=== PATIENT | female | born 2005 | race Caucasian/White ===

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

== ENCOUNTER 2025-01-25 14:53 | Emergency (ER) | payer OTHER, SELFPAY ==
--- OUTSIDE RECORDS SUMMARY | 2025-01-20 23:50 | XMS_ITS | Encounter Summary ---
Author Organization [facility] Address [address] [place] [address] Phone Care Team Providers Care Patient Service Technician Pst Name Role Phone Yunier Lama MD Primary Care Provider [phone] Reason for Visit * Reason Comments Chest Pain Shortness of Breath Encounter Details Date Type Department Care Team ([facility] st Contact Info) Description 01/20/2025 11:50 PM EDT - 01/21/2025 1:16 AM EDT Emergency [facility] [address] [place] [address] Hugo Smyth, DO [address] [place] [address] [email or web address] Discharge Disposition: Home or Self Care Social History Tobacco Use Types Packs/Day Years Used Date Smoking Tobacco: Never Smokeless Tobacco: Never Alcohol Use Standard Drinks/Week Comments Never 0 (1 standard drink = 0.6 oz pur e alcohol) Education Answer Date Recorded Are you interested in more education? Not on tawnya e 08/17/2022 Are you concerned about learning? Not on file 08/17/2022 No 08/17/2022 No 08/17/2022 Food Answer Date Recorded Within the past 6 months we worried whether our food would run out before we got money to buy more. Never True 09/11/2024 Within the past 6 months the food we bought just didn't last and we didn't have enough money to get more. Never True Residential Stability Answer Date Recor ded What is your housing situation today? I have edwina sing 09/11/2024 How many times have you move d in the past 12 months? Zero (I did not move) 09/11/2024 Paying for Meds Answer Date Recorded Do you have trouble paying for medicines? No 09/11/2024 Paying Utility Bills Answer Date Record ed Do you have trouble paying your heating or elect ricity bill? No 09/11/2024 Transportation Answer Date Recorded Has the lack of transportati on kept you from medical appointments or from getting medications? No 09/11/2024 Digital Access Answer Date Recorded No 09/11/2024 Yes 09/11/2024 Do you have reliable internet access at home? Ye s 09/11/2024 Do you have a device (e.g., phone, tablet, computer) with a working camera? Yes 09/11/2024 Intimate Partner Violence Answer Date R ecorded Are you denied basic needs s uch as food, clothing, or medical care? No 01/20/2025 In the past 12 months have y ou been in a relationship with a person who hurts, threatens, or tries to control you? No 01/20/2025 Are you denied basic needs s uch as food, clothing, or medical care? No 01/20/2025 In the past 12 months have y ou been in a relationship with a person who hurts, threatens, or tries to control you? No 01/20/2025 Comments No Sex and Gender Information Value Date Recorded Sex Assigned at Female 09/14/2017 1:05 PM EDT Legal Sex Female 8:43 PM EDT Gender Identity Female 09/14/2017 1:05 PM EDT Sexual Orientation Don't know 09/11/2024 4: 50 AM EDT documented as of this encounter Last Filed Vital Signs Vital Sign Reading Time Taken Comments Blood Pressure 107/66 01/21/2025 1:14 AM EDT Pulse 64 01/21/2025 1:14 AM EDT Temperature 36 C (96.8 F) 01/21/2025 1:14 AM EDT Respiratory Rate 16 01/21/2025 1:14 AM EDT Oxygen Saturation 100% 01/21/2025 1:14 AM EDT Inhaled Oxygen Concentration - - Weight 63.5 kg (140 lb) 01/20/2025 11:28 PM EDT Height 167.6 cm (5' 6 ) 01/20/2025 11:28 PM EDT Body Mass Index 22.6 01/20/2025 11:28 PM EDT documented in this encounter Functional Status * Calculated C-SSRS Risk Score (Lifetime/Recent) Answer Date of Assessment Author No Risk Indicated 01/20/2025 11:30 PM EDT Mary Jo Kim RN * [place] Suicide Severity Rating Scale (Screener/Recent Self-Report) Question Answer Date of Assessment Author 1. Wish to be (Past 1 Month) No 025 11:30 PM EDT Mary Jo Kim RN 2. Non-Specific Active Suici dilcia Thoughts (Past 1 Month) No 01/20/2025 11:30 PM EDT Mary Jo Kim RN 6. Suicidal Behavior (Lifetime) No 11:30 PM EDT Mary Jo Kim RN documented as of this encounter Discharge Instructions * Discharge Instructions* Hugo Smyth DO - 01/21/2025 1:09 AM EDT As we discussed overall your workup is reassuring. I believe it is safe for you to go home. Moving forward I would alternate Tylenol with ibuprofen for your pain. I also recommend using lidocaine patches available [id number]. Follow-up with your technician semiconductor development tomorrow as previously arranged. Return for any further concerning symptoms. * Attachments The following attachments cannot be sent through Care Everywhere. * Chest Pain (Slovak) documented in this encounter Medications at Time of Discharge FLUoxetine (PROZAC) 20 MG capsule Take 20 mg by mouth daily. 06/17/2023 hydrOXYzine (ATARAX) 25 MG tablet Take 25 mg by mouth 2 (two) times a day as needed for anxiety. 12/17/2022 documented as of this encounter ED Notes * Venus Conner RN - 01/21/2025 1:15 AM EDT ED Discharge Nursing Note Patient is alert and oriented, pwd, VSS. Discharge instructions, medication management, and follow-up reviewed. Patient verbalizes understanding and denies questions at this time. Patient discharged in stable condition and offering no complaints at this time. Ambulatory at time of discharge. * Mary Jo Kim RN - 01/20/2025 11:27 PM EDT Pt reports chest pain 12/30 tot he center of her chest that is sharp and SOB that started about 2 hrs ago. Pt reports being seen at the ED 2 days ago for the same symptoms. Pt able to speak in full sentences. * Hugo Smyth DO - 01/20/2025 11:17 PM EDT Chief Complaint Chief Complaint Patient presents with Chest Pain Shortness of Breath History of Present Illness The patient, Santos Eid,is a 19 y.o. female who presents for evaluation of Chest Pain and Shortnessof Breath 19-year-old female presents for evaluation of chest pain and shortness of breath. Patient states that she has had pain in the anterior chest. Associated pain in the posterior thoracic spine. Worse when he takes breath. Reports also worse when she moves her torso. Tried ibuprofen but not really helping. Pain is intermittent. States they were seen and evaluated here 2 days ago and after labs and x-ray sent home with possible anxiety diagnosis. Has a follow-up with her technician semiconductor development tomorrow however given persistent pain came back to the ED today. They are accompanied by their mom. No exogenous estrogen use Unless otherwise specified, I have reviewed and agree with the triage and nursing notes. ROS A ten point review of systems was negative except what was noted in the HPI. Review of Systems Past Medical History Past Medical History: Diagnosis Date Seasonal allergies Past Surgical History No past surgical history on file. Home Medications Prior to Admission medications Medication Sig FLUoxetine (PROZAC) 20 MG capsule 20 mg, Daily Patient not taking: Reported on 01/18/2025 hydrOXYzine (ATARAX) 25 MG tablet 25 mg, 2 times daily PRN Allergies No Known Allergies Social and Family History Social History Tobacco Use Smoking status: Never Smokeless tobacco: Never Substance Use Topics Alcohol use: Never Social History Substance and Sexual Activity Drug Use Never No family history on file. Physical Exam Vital Signs: ED Triage Vitals [01/20/25 2328] Encounter Vitals Group BP 102/59 Systolic BP Percentile Diastolic BP Percentile Heart Rate 78 Respiratory Rate 18 Temperature 36 ??C (96.8 ??F) Temp Source Tympanic SpO2 97 % Weight 140 lb Height 5' 6 Head Circumference Peak Flow Pain Score Pain Loc Pain Education Exclude from Growth Chart Physical Exam General: Well Nourished, Well Developed HENT: Normocephalic, Atraumatic Eyes: Pupils equal, EOM Intact Cardiovascular: Normal Rate, Normal Rhythm, Good Distal Perfusion, no lower extremity swelling Pulmonary: Normal Effort, symmetric chest rise, there is tenderness of the anterior chest wall. Abdominal: Soft, Non-tender, Non-distended MSK: Normal ROM Skin: Intact, Dry Neurological: Alert, Orientated x 3 Psych: Normal Mood and Affect Laboratory Testing No results found for this visit on 01/20/25. Radiology Testing No orders to display ED Medication from 01/20/2025 2317 to 01/21/2025108 Date/Time Order Dose Route Action Action by Comments 01/21/202529 EDT acetaminophen (TYLENOL) tablet 975 mg 975 mg Oral Given Venus Conner RN -- 01/21/202530 EDT ketorolac (TORADOL) injection 30 mg 30 mg Intramuscular Given Venus Conner RN -- 01/21/202530 EDT lidocaine 4 % 1 patch 1 patch Transdermal Patch Applied Venus Conner RN -- [facility] Patient presents for evaluation of symptoms described above. On arrival vital signs are stable. EKGdemonstrates sinus rhythm no acute ST elevations or ST depressions. Normal axis and intervals. At this time most likely diagnosis is that of musculoskeletal etiology given reproducible nature of the pain. Patient was here the other day underwent x-ray imaging and labs including serial troponins andD-dimer all of which were negative. At this time low concern for acute life threat pathology do notfeel that labs or imaging need to be repeated. Will provide symptomatic care and reassess. Clinical Impressions as of 01/21/25 010 Chest pain, unspecified type Clinical Impression Diagnosis Description Comment Final diagnosis Chest pain, unspecified type Chest pain, unspecified type -- Disposition: Home Hugo Smyth, DO 01/21/25 0109 documented in this encounter Plan of Treatment Not on file documented as of this encounter Procedures Procedure Name Priority Date/Time Associated Diagnosis Comments ECG 12-LEAD STAT 01/21/2025 12:10 AM EDT documented in this encounter Results * ECG 12-LEAD (01/21/2025 12:10 AM EDT) Ventricular Rate EKG/MIN 70 BPM [facility] Atrial Rate 70 BPM [facility] SC Interval 128 ms [facility] QRS Duration 74 ms [facility] QT Interval 382 ms [facility] QTC Interval 412 ms [facility] P [place] 48 degrees [facility] R Wave [place] 53 degrees [facility] T Wave [place] 19 degrees [facility] 01/21/2025 12:1 0 AM EDT 01/21/2025 7:43 AM EDT Narrative [facility] - 01/21/2025 7:43 AM EDT Normal sinus rhythm Otherwise normal ECG When compared with ECG of 18-Jan-2025 15:11, Compared to the previous ekg, no significant change. Confirmed by Hong Elizalde ([id number]) on 01/21/2025 7:43:13 AM us Win Whitney MD ECG ORDERABLES Final Resul t [facility] documented in this encounter Visit Diagnoses Diagnosis Chest pain, unspecified type- Primary documented in this encounter Administered Medications Inactive Administered Medications - up to 3 most recent administrations Medication Order MAR Action Action Date Dose Rate Site acetaminophen (TYLENOL) tablet 975 mg 975 mg, Oral, Once, On Kayla 01/21/25 at 0015, For 1 dose Given 01/21/2025 12:30 AM EDT 975 mg ketorolac (TORADOL) injection 30 mg 30 mg, Intramuscular, Once, On Kayla 01/21/25 at 0015, For 1 dose Given 01/21/2025 12:31 AM EDT 30 mg Right Deltoid lidocaine 4 % 1 patch 1 patch, Transdermal, Administer over 12 Hours, Every 24 hours, First dose on Kayla 10/2/25 at 0015, Apply to anterior chest wall Do not place external heat sources such as heating pads over patches. Patch Applied 01/21/2025 12:31 AM EDT 1 patch Back documented in this encounter Active and Recently Administered Medications Times are shown in EDT. Scheduled Medication Order 01/19/2025 01/20/2025 01/21/2025 acetaminophen (TYLENOL) tablet 975 mg (COMPLETED) 975 mg, Oral, Once, On Kayla 01/21/25 at 0015, For 1 dose 0030 (Given - Provid er: Venus Conner RN) ketorolac (TORADOL) injection 30 mg (COMPLETED) 30 mg, Intramuscular, Once, On Kayla 01/21/25 at 0015, For 1 dose 0031 (Given - Provid er: Venus Conner RN) lidocaine 4 % 1 patch 1 patch, Transdermal, Administer over 12 Hours, Every 24 hours, First dose on Kayla 01/21/25 at 0015, Apply to anterior chest wall Do not place external heat sources such as heating pads over patches. 0031 (Patch Applied - Provider: Venus Conner RN)0116 (Due: Patch Removed - Provider: Automatic Discharge Provider - Comment: Time automatically adjusted from order being discontinued) documented in this encounter Care Teams Patient Service Technician Pst Relationship Specialty Start Date End Date Yunier Lama MD [address] [place] [address], [facility] [address] [place] [address] [email or web address] PCP - General Pediatrics 11/08/22 documented as of this encounter Additional Source Comments The information contained in this document represents components of the legal health record. It is not the complete legal health record.[facility]
--- OUTSIDE RECORDS SUMMARY | 2025-01-21 15:50 | XMS_ITS | Encounter Summary ---
Author Organization [facility] Address [address] [place] [address] Phone Care Team Providers Care Channel Rougher Name Role Phone Yunier Lama MD Primary Care Provider [phone] Reason for Visit * Reason Comments Med Management Encounter Details Date Type Department Care Team (Latest Contact Info) Description 01/21/2025 3:50 PM EDT Office Visit [facility] - [address], [address] [place] [address] Yunier Lama MD [address] [place] [address] Costochondritis (Primary Dx); Nasal congestion; Urinary frequency; Anxiety Social History Tobacco Use Types Packs/Day Years Used Date Smoking Tobacco: Never Smokeless Tobacco: Never Alcohol Use Standard Drinks/Week Comments Never 0 (1 standard drink = 0.6 oz pur e alcohol) Hunger/Food Answer Date Recorded In the last 12 months, did y ou or your family ever eat less than you felt you should because there wasn't enough money for food? No 08/17/2024 Stable Housing Answer Date Recorded Are you worried that in the next 2 months you may not have stable housing? No 08/17/2024 Transportation Concerns Answer Date Rec orded In the last 12 months, have you or your family ever had to go without healthcare because you didn't have a way to get there? No 08/17/2024 Hazards in Home Answer Date Recorded Think about the place you li ve. Do you have problems with any of the following? Pests (mice or roaches), mold, no/not working smoke detectors, water leaks, no window guards. No 2024 Financing Utilities Answer Date Recorde d In the last 12 months, has t he electric, gas, oil, or water company threatened to shut off your services in your home? No 08/17/2024 Safety at Home Answer Date Recorded Are you or your family worried about feeling saf e in your home? No 08/17/2024 Outside Support Answer Date Recorded Do you feel that you need mo re support from other people or programs to help you care for yourself or your family? No 08/17/2024 Understanding Health Concerns Answer Da te Recorded Do you need help understandi ng your or your child's healthcare needs (diagnosis, medications, plan, etc.)? No 08/17/2024 Financing Health Concerns Answer Date R ecorded In the last 12 months, was t here a time when your child needed to see a doctor or get medications or supplies but could not because of cost? No 08/17/2024 Missing School or Work Answer Date Musa rded Did you or your child miss s chool or work because of a health problem that could have been avoided? No 08/17/2024 Child Education Answer Date Recorded Do you have concerns about y our/your child's learning or behavior in school, preschool, or daycare? No 08/17/2024 Comments No Sex and Gender Information Value Date Recorded Sex Assigned at Female 03/27/2024 3:46 PM EST Legal Sex Female 5:10 PM EST Gender Identity Female 05/14/2022 3:20 PM EST Sexual Orientation Choose not to answer 04/08/20 24 2:38 PM EST documented as of this encounter Last Filed Vital Signs Vital Sign Reading Time Taken Comments Blood Pressure 109/72 01/21/2025 3:55 PM EDT Pulse 80 01/21/2025 3:55 PM EDT Temperature 37.3 C (99.1 F) 01/21/2025 3:55 PM EDT Respiratory Rate - - Oxygen Saturation 99% 01/21/2025 3:55 PM EDT Inhaled Oxygen Concentration - - Weight 70 kg (154 lb 6.4 oz) 01/21/2025 3:55 PM EDT Height - - Body Mass Index 24.55 08/17/2024 3:02 PM EDT documented in this encounter Progress Notes * Yunier Lama MD - 01/21/2025 3:50 PM EDT Chief Complaint Med Management Accompanied by No one. History of Present Illness Santos has been off hydroxyzine since 01/16. Meredith hydroxyzine made her mom anxious. Since stopping medication she has had SOB and chest pain that radiates to her back. Nausea in the morning as well. Screenings General Anxiety Disorder-7 (GAD7) DEWAYNE 7 Score: 17 Patient Health Questionnaire-9 (PHQ-9) PHQ-9 Total Score: 5 (See screening activity for details) Reviewed this visit: Medications Allergies Menstrual History Vitals BP 109/72 (BP Location: Right arm, Patient Position: Sitting) Pulse 80 Temp 99.1 ??F (37.3 ??C)(Temporal) Wt 154 lb 6.4 oz (70 kg) LMP 12/17/2024 (Exact Date) SpO2 99% BMI 24.55 kg/m?? Labs Today Results for orders placed or performed in visit on 01/21/25 POCT Urinalysis Dipstick Result Value Ref Range Color, Urine, POC Light Yellow Colorless or Yellow Clarity, Urine, POC Clear Clear or Slightly Cloudy Glucose, Urine, POC Negative Negative Bilirubin, Urine, POC Negative Negative Ketones, Urine, POC Small (A) Negative Specific [place], Urine, POC 1.005 1.003 - 1.030 Blood, Urine, POC Negative Negative pH, Urine, POC 6.0 4.6 - 8.0 Protein, Urine, POC Negative Negative Urobilinogen, Urine, POC 0.2 <=1, Normal mg/dL Nitrite, Urine, POC Negative Negative Leukocytes, Urine, POC Negative Negative Assessment and Plan Santos was seen today for med management. Costochondritis (Primary) Assessment & Plan: he patient's symptoms suggest costochondritis, a common cause of pain due to inflammation along thesternum cartilage. The exact etiology is unknown, but it can be managed with ibuprofen and ice application to the affected areas. Her anxiety may be exacerbating her pain. Reassured her that her heart and lungs are functioning well. Advised to continue with ibuprofen and ice application. Tylenol was recommended as an alternative for pain management. Nasal congestion - cetirizine (ZyrTEC Allergy) 10 MG tablet; Take 1 tablet (10 mg total) by mouth nightly as needed for allergies., Starting Kayla 01/21/2025, Until 03/22/2025 at 2359, Normal Urinary frequency - POCT Urinalysis Dipstick - Urine culture Anxiety Assessment & Plan: Her anxiety appears to be worsening, which could be intensifying her chest pain. She has an upcoming appointment with a therapist at [facility] on 01/26/2025. Lexapro was prescribed, starting with half a pill daily for one week, then increasing to a full pill daily. Potential side effects, including increased irritability and suicidal thoughts, were discussed. Advised to consult her therapist for relaxat ion techniques and breathing exercises to manage her anxiety. DEWAYNE 7 score is significantly elevated PHQ 9 mild elevation This medication is not addictive. We will use the lowest effective dose by starting low and increasing slowly. The FDA has found a very small risk of suicidal thoughts for this type of medication when used for treating anxiety, but the benefits of the medication are believed to strongly outweigh the risks if we monitor closely. Other side effects seen most commonly are nausea, diarrhea, headache and trouble sleeping are mild ad go away after a few days. If any concerning things arise while tkaing this medication, be sure to call the office and we'll decide what to do. Orders: - escitalopram (Lexapro) 10 MG tablet; 0.5 tab qd for 1 week then increase to 1 tab qd, Normal * Yunier Lama MD - 01/21/2025 3:50 PM EDT CRISTY Progress Note Santos is a 19yr woman who comes in today for Med Management History of Present Illness The patient is here for a follow-up on depression and anxiety. She reports experiencing sharp chest pains that radiate to her back, which began a few days ago. Despite the absence of any alarming findings from her recent EKG, x-ray, and blood work, she continuesto experience mild chest pain. She also mentions occasional chills and morning nausea. Her last menstrual period was on 12/21/2024, and she has not had one since. A test was conducted, which came back negative. She has been sexually inactive for several months. During her last ER visit, she was given a lidocaine patch for her back pain, which provided temporary relief. However, the painreturned after an hour or two. The pain is located in her upper back and radiates around both sides. She has been applying ice to the painful areas, but this has not provided significant relief. 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 She suspects that lifting heavy bags at work may have contributed to her pain, although she tries to avoid heavy lifting andseeks help from coworkers when necessary. She discontinued hydroxyzine due to perceived exacerbation of her anxiety symptoms, including increased panic attacks. She is not currently on any anti- anxiety medication, having stopped fluoxetine over a year ago. She has not consulted a psychiatrist in over a year and does not have a therapist. She has an upcoming appointment for outpatient therapy at [facility] on 01/26/2025. She expresses more concern about her shortness of breath than her anxiety. She feels the need to yawn to get enough oxygen and is seeking medication for this symptom. She has previously taken sertraline and fluoxetine, as well as another medication during inpatient care a few years ago, but none of these have been effective. She has noticed an increase in mucus production in her throat and a sensation of dryness. She reports increased urinary frequency but does not experience any pain during urination. Reviewed this visit: Medications Allergies Menstrual History Screenings General Anxiety Disorder-7 (GAD7) DEWAYNE 7 Score: 17 Patient Health Questionnaire-9 (PHQ-9) PHQ-9 Total Score: 5 (See screening activity for details) Vitals BP 109/72 (BP Location: Right arm, Patient Position: Sitting) Pulse 80 Temp 99.1 ??F (37.3 ??C)(Temporal) Wt 154 lb 6.4 oz (70 kg) LMP 12/17/2024 (Exact Date) SpO2 99% BMI 24.55 kg/m?? Physical Exam GEN: Well appearing, in no acute distress HEAD: Normocephalic, atraumatic. EYES: Conjunctiva clear, no discharge, eyelids wnl. EARS: TMs wnl bilaterally. NOSE: No rhinorrhea, no nasal congestion. ORAL: Moist mucous membranes. No lesion, no erythema, exudate or petechiae. NECK: Supple, no significant adenopathy. COR: RRR, nml S1 and S2, no rubs, murmurs, or gallops. PULM: Clear to auscultation bilaterally. Normal respiratory effort. EXT: Warm, well perfused. MUSC: No gross deformity. Gait/movement wnl for age. NEURO: Mental status wnl for age, no gross deficits. Physical Exam Vital Signs: Oxygen levels are normal. Respiratory: Lungs are clear. Cardiovascular: Heart is normal. Musculoskeletal: Tenderness noted at the costosternal margin bilaterally. Labs Today Results for orders placed or performed in visit on 01/21/25 POCT Urinalysis Dipstick Result Value Ref Range Color, Urine, POC Light Yellow Colorless or Yellow Clarity, Urine, POC Clear Clear or Slightly Cloudy Glucose, Urine, POC Negative Negative Bilirubin, Urine, POC Negative Negative Ketones, Urine, POC Small (A) Negative Specific [place], Urine, POC 1.005 1.003 - 1.030 Blood, Urine, POC Negative Negative pH, Urine, POC 6.0 4.6 - 8.0 Protein, Urine, POC Negative Negative Urobilinogen, Urine, POC 0.2 <=1, Normal mg/dL Nitrite, Urine, POC Negative Negative Leukocytes, Urine, POC Negative Negative Assessment and Plan Santos was seen today for med management. Costochondritis (Primary) Assessment & Plan: he patient's symptoms suggest costochondritis, a common cause of pain due to inflammation along thesternum cartilage. The exact etiology is unknown, but it can be managed with ibuprofen and ice application to the affected areas. Her anxiety may be exacerbating her pain. Reassured her that her heart and lungs are functioning well. Advised to continue with ibuprofen and ice application. Tylenol was recommended as an alternative for pain management. Nasal congestion - cetirizine (ZyrTEC Allergy) 10 MG tablet; Take 1 tablet (10 mg total) by mouth nightly as needed for allergies., Starting Kayla 01/21/2025, Until 03/22/2025 at 2359, Normal Urinary frequency - POCT Urinalysis Dipstick - Urine culture Anxiety Assessment & Plan: Her anxiety appears to be worsening, which could be intensifying her chest pain. She has an upcoming appointment with a therapist at [facility] on 01/26/2025. Lexapro was prescribed, starting with half a pill daily for one week, then increasing to a full pill daily. Potential side effects, including increased irritability and suicidal thoughts, were discussed. Advised to consult her therapist for relaxat ion techniques and breathing exercises to manage her anxiety. DEWAYNE 7 score is significantly elevated PHQ 9 mild elevation This medication is not addictive. We will use the lowest effective dose by starting low and increasing slowly. The FDA has found a very small risk of suicidal thoughts for this type of medication when used for treating anxiety, but the benefits of the medication are believed to strongly outweigh the risks if we monitor closely. Other side effects seen most commonly are nausea, diarrhea, headache and trouble sleeping are mild ad go away after a few days. If any concerning things arise while tkaing this medication, be sure to call the office and we'll decide what to do. Orders: - escitalopram (Lexapro) 10 MG tablet; 0.5 tab qd for 1 week then increase to 1 tab qd, Normal Assessment & Plan 1. Costochondritis. The patient's symptoms suggest costochondritis, a common cause of pain due to inflammation along the sternum cartilage. The exact etiology is unknown, but it can be managed with ibuprofen and ice application to the affected areas. Her anxiety may be exacerbating her pain. Reassured her that her heart and lungs are functioning well. Advised to continue with ibuprofen and ice application. Tylenol was recommended as an alternative for pain management. 2. Anxiety. Her anxiety appears to be worsening, which could be intensifying her chest pain. She has an upcoming appointment with a therapist at [facility] on 01/26/2025. Lexapro was prescribed, starting with half a pill daily for one week, then increasing to a full pill daily. Potential side effects, including increased irritability and suicidal thoughts, were discussed. Advised to consult her therapist for relaxat ion techniques and breathing exercises to manage her anxiety. 3. Throat mucus and dryness. An antihistamine such as Claritin or Zyrtec was recommended for her throat mucus and dryness. A prescription for Zyrtec, one pill daily, was provided. 4. Urinary frequency. A urine test will be conducted to investigate her increased urinary frequency. Follow-up: The patient will follow up in a few weeks. Additional Services: On the date of this encounter, I personally performed, for a total time of 44 minutes, both [id number] and esr-oqhm-dh-face services which included: reviewing records, obtaining patient history, performing a medically appropriate examination, counseling and educating the patient/family/caregiver and documenting clinical information in the electronic health record. Of the total time, 15 minutes was ofu-ljut-ul-face services. Services performed included: ??? Reviewing notes, test results, and/or reports. ??? Communicating test results to the patient/family. Additional details: Including reviewing 2 ED visits and discussed results with pt. -This note was created in-part using artificial intelligence. Consent to record the visit and use this technology was obtained by the patient/guardian. documented in this encounter Miscellaneous Notes * Assessment & Plan Note - Yunier Lama MD - 01/21/2025 4:47 PM EDT Associated Problem(s): Costochondritis he patient's symptoms suggest costochondritis, a common cause of pain due to inflammation along thesternum cartilage. The exact etiology is unknown, but it can be managed with ibuprofen and ice application to the affected areas. Her anxiety may be exacerbating her pain. Reassured her that her heart and lungs are functioning well. Advised to continue with ibuprofen and ice application. Tylenol was recommended as an alternative for pain management. * Assessment & Plan Note - Yunier Lama MD - 01/21/2025 4:44 PM EDT Associated Problem(s): Anxiety Her anxiety appears to be worsening, which could be intensifying her chest pain. She has an upcoming appointment with a therapist at [facility] on 01/26/2025. Lexapro was prescribed, starting with half a pill daily for one week, then increasing to a full pill daily. Potential side effects, including increased irritability and suicidal thoughts, were discussed. Advised to consult her therapist for relaxat ion techniques and breathing exercises to manage her anxiety. DEWAYNE 7 score is significantly elevated PHQ 9 mild elevation This medication is not addictive. We will use the lowest effective dose by starting low and increasing slowly. The FDA has found a very small risk of suicidal thoughts for this type of medication when used for treating anxiety, but the benefits of the medication are believed to strongly outweigh the risks if we monitor closely. Other side effects seen most commonly are nausea, diarrhea, headache and trouble sleeping are mild ad go away after a few days. If any concerning things arise while tkaing this medication, be sure to call the office and we'll decide what to do. * Assessment & Plan Note - Yunier Lama MD - 01/21/2025 4:43 PM EDT Associated Problem(s): Costochondritis (Deleted) Images from the original note were not included. documented in this encounter Plan of Treatment Upcoming Encounters Date Type Department Care Team (Late st Contact Info) Description 02/08/2025 1:40 PM EDT Office Visit [facility] - [address], [address] [place] [address] Yunier Lama MD [address] [place] [address] documented as of this encounter Procedures * Due to [place] [employer] law, this organization might not be sharing sensitive test results. Procedure Name Priority Date/Time Associated Diagnosis Comments POCT URINALYSIS DIPSTICK Routine 01/21/2025 4:43 PM EDT Urinary frequency URINE CULTURE Routine 01/21/2025 4:41 PM EDT Urinary frequency documented in this encounter Results * Due to [place] [employer] law, this organization might not be sharing sensitive test results. * (ABNORMAL) POCT Urinalysis Dipstick (01/21/2025 4:43 PM EDT) Color, Urine, POC Light Yellow Colorless or Yellow [facility] Clarity, Urine, POC Clear Clear or Slightly Cloudy [facility] Glucose, Urine, POC Negative Negative [facility] Bilirubin, Urine, POC Negative Negative [facility] Ketones, Urine, POC Small(A) Negative [facility] Specific [place], Urine, POC 1.005 1.003 - 1.030 [facility] Blood, Urine, POC Negative Negative [facility] pH, Urine, POC 6.0 4.6 - 8.0 [facility] Protein, Urine, POC Negative Negative [facility] Urobilinogen, Urine, POC 0.2 <=1, Normal mg/dL [facility] Nitrite, Urine, POC Negative Negative [facility] Leukocytes, Urine, POC Negative Negative [facility] Urine 01/21/2025 4:43 PM EDT us Yunier Lama MD POINT OF CARE TEST ORDERABLES Final Result [facility] [address] [facility], [address] [place] [address] * (ABNORMAL) Urine culture (01/21/2025 4:41 PM EDT) SPECIAL REQUESTS None 01/21/2025 7:20 PM EDT [facility] Urine Culture 10,000 to 100,000 colony forming units per mL MIXED DIEGO (3 OR MORE COLONY TYPES) Culture indicates contamination . Please resubmit if necessary.(A) 01/23/2025 12:27 PM EDT [facility] Urine (Urine) 01/21/2025 4:4 1 PM EDT 01/21/2025 7:28 PM EDT Narrative [facility] - 01/23/2025 12:27 PM EDT us Yunier Lama MD LAB MICROBIOLOGY - GENERAL OR DERABLES Final Result [facility] documented in this encounter Visit Diagnoses Diagnosis Costochondritis- Primary Tietze's disease Nasal congestion Other diseases of nasal cavity and sinuses Urinary frequency Anxiety Anxiety state, unspecified documented in this encounter Care Teams Channel Rougher Relationship Specialty Start Date End Date Yunier Lama MD [address] [place] [id number] PCP - General 06/12/16 documented as of this encounter
--- OUTSIDE RECORDS SUMMARY | 2025-01-21 19:19 | XMS_ITS | Encounter Summary ---
Author Organization [facility] Address [address] [place] [address] Phone Care Team Providers Care Reading Efficiency Course Director Name Role Phone Yunier Lama MD Primary Care Provider [phone] Encounter Details Date Type Department Care Team (Latest Contact Info) Description 01/21/2025 7:19 PM EDT - 01/21/2025 11:59 PM EDT Hospital Encounter [facility] [address] [place] [id number] Yunier Lama MD [address] [facility] [address] [place] [address] [email or web address] Discharge Disposition: Home or Self Care Social [...] AM EDT documented as of this encounter Medications at Time of Discharge FLUoxetine (PROZAC) 20 MG capsule Take 20 mg by mouth daily. 06/17/2023 hydrOXYzine (ATARAX) 25 MG tablet Take 25 mg by mouth 2 (two) times a day as needed for anxiety. 12/17/2022 documented as of this encounter Plan of Treatment Not on file documented as of this encounter Procedures Procedure Name Priority Date/Time Associated Diagnosis Comments URINE CULTURE Routine 01/21/2025 4:41 PM EDT Frequency of micturition documented in this encounter Results * (ABNORMAL) Urine Culture (01/21/2025 4:41 PM EDT) Special Requests None 01/21/2025 7:20 PM EDT [facility] Urine Culture 10,000 to 100,000 colony forming units per mL MIXED DIEGO (3 OR MORE COLONY TYPES) Culture indicates contamination . Please resubmit if necessary.(A) 01/23/2025 12:27 PM EDT [facility] Urine 01/21/2025 4:41 PM EDT 01/21/2025 7:28 PM EDT us Yunier Lama MD MICROBIOLOGY - GENERAL [place]AN [place] Final Result [facility] [address] [place] [address] documented in this encounter Visit Diagnoses Diagnosis Frequency of micturition Urinary frequency documented in this encounter Care Teams Reading Efficiency Course Director Relationship Specialty Start Date End Date Yunier Lama MD [address] [facility], [address] [place] [address] PCP - General Pediatrics 11/08/22 documented as of this encounter Additional Source Comments The information contained in this document represents components of the legal health record. It is not the complete legal health record.[facility]
--- NOTE | ~2025-01-25 | XR_ITS ---
EXAMINATION: XR CHEST CLINICAL INFORMATION: pnuemonia? COMPARISON: 03/20/2020. TECHNIQUE: PA view of the chest was obtained. FINDINGS: The cardiac, hilar, and mediastinal contours are normal. The lungs are clear bilaterally. No pneumothorax or effusion. No focal osseous or soft tissue abnormality. XR/XR chest 1V IMPRESSION: Normal chest. Electronically signed by: Rohan Lepe MD 01/25/2025 04:12 PM EDT
--- NOTE | 2025-01-25 14:55 | ECG_ITS ---
Test Reason : cp Blood Pressure : */* mmHG Vent. Rate : 74 BPM Atrial Rate : 74 BPM P-R Int : 128 ms QRS Dur : 78 ms QT Int : 352 ms P-R-T Axes : 46 66 33 degrees QTcB Int : 390 ms Normal sinus rhythm Normal ECG When compared to the previous EKG of No significant changes seen Referred By: Jeff Marin Electronically Signed By: ZEYAD ORTEGA MD
[2025-01-25 15:34] VITALS: BP 114/60; PULSE 73; RESP 18; TEMP 36.6; O2SAT 100; BMI 24.2
--- NOTE | 2025-01-25 15:42 | ED_ITS ---
HPI - Chest Pain General Chief Complaint: Chest Pain Stated Complaint: CP, SOB Time Seen by Provider: 01/25/25 17:42 Source: patient Mode of arrival: ambulatory Limitations: no limitations History of Present Illness ED Provider: Dr. Joseph HPI narrative: This is a 19-year-old female presented hospital today for evaluation of pleuritic chest pain. Patient stated that is worsened when she takes a deep breath in and out this has been on for a month however been worsening for the past week. Patient stated it is on the right side and radiates up her back. Patient is also complaining of sore throat since with coughing. Related Data Previous Rx's ?Medication ?Instructions ?Recorded meclizine 25 mg tablet 25 mg PO TID PRN dizziness # 14 tabs 03/20/20 azithromycin 250 mg tablet See Rx Instructions PO .COM PLEX #6 01/25/25 (Zithromax Z-Aquiles) tabs prednisone 20 mg tablet 20 mg PO DAILY 7 days #7 tab s 01/25/25 Allergies Allergy/AdvReac Type Severity Reaction Status Date / Time Seasonale Allergy Unknown Unknown Uncoded 01/25/25 15:37 Review of Systems 2 Review of Systems: Pertinent review of systems as mentioned in HPI. All other system otherwise negative. [facility] Past Medical History [facility] Narrative: None Medical History (Updated 01/25/25 @ 18:16 by Lauren Joseph DO) No known health problems Social History Social History Alcohol intake: never Smoked in Last 30 Days: No Use of substances other than those prescribed or required for medical reasons: No Advance Directives: No Advance Directives Information Provided: No Physical Exam 2 Exam: Exam: General: Pleasant, no distress, interacting appropriately Head: Normacephalic, atraumatic ENT: oral mucosa moist, neck supple, no tracheal deviation Cardiovascular: regular rate, regular rhythm, no murmurs, rubbing, gallops Respiratory: CTAB, no wheeze, rales, rhonchi Gastrointestinal: Soft, non distended, non tender, non guarding Neurological: Awake and alert, no facial droop noted Skin: Warm and dry Psychiatric: Appropriate mood and thoughts Vital Signs: Vital Signs: Last Vital Signs Temp 98 F 01/25/25 15:34 Pulse 73 01/25/25 15:34 Resp 18 01/25/25 15:34 BP 114/60 01/25/25 15:34 Pulse Ox 100 01/25/25 15:34 O2 Del Method Room Air 01/25/25 15:34 BMI result Body Mass Index 24.2 Medical Decision Making Medical Decision Making [facility] Narrative: 19-year-old female presented hospital today for evaluation of shortness of breath and chest pain that is pleuritic in nature. Patient's CBC shows slight anemia at 11.7. Patient's D-dimer is negative do not think this is PE. Patient's chemistries unremarkable. Troponins negative. UA did not show any signs of UTI. COVID influenza and strep swab is negative and mono screen test was negative. We will plan to start patient on Z-Aquiles given the chronicity of her cough. In her pain. We will also start patient on a small prednisone course. Encouraged her to follow up with primary care doctor for further evaluation. Patient and parents agrees and understands this plan all questions were addressed. Differential Diagnosis Differential Diagnoses: The differential diagnosis associated with the presentation includes Costochondritis, pleurisy, ACS, PE Lab Data [facility] Lab Attestation statement: I reviewed the patient's lab results. 01/25/25 16:26 01/25/25 16:26 Labs: Lab Results 01/25/25 01/25/25 Range/Units 16:26 17:49 WBC 6.2 (4.8-10.8) X10*3/uL RBC 3.86 L (4.20-5.50) X10*6/uL Hgb 11.7 L (12.0-16.0) g/dl Hct 34.7 L (37.0-47.0) % MCV 89.9 (80.0-98.0) fL MCH 30.3 (27.0-33.0) pg MCHC 33.7 (31.0-35.0) g/dl RDW 13.2 (11.0-16.0) % Plt Count 408 H (160-400) X10*3/uL MPV 9.8 (9.4-12.3) fL Immature Gran % (Auto) 0.5 H (0.0-0.4) % Neut % (Auto) 65.9 (45-73) % Lymph % (Auto) 23.5 (20-40) % [place] % (Auto) 6.6 (2-11) % Eos % (Auto) 2.9 (0-4) % Baso % (Auto) 0.6 (0-2) % Lymph # (Auto) 1.5 (1.2-4.9) X10*3/uL [place] # (Auto) 0.4 (0.1-1.2) X10*3/uL Eos # (Auto) 0.2 (0.0-0.4) X10*3/uL Baso # (Auto) 0.0 (0.0-0.2) X10*3/uL Abs Immat Gran (auto) 0.03 (0.00-0.03) X10*3/uL Absolute Neuts (auto) 4.1 (2.0-8.3) x10*3/uL Absolute Nucleated RBC 0.000 (0.0-0.012) X10*3/uL Nucleated RBC % (auto) 0.0 (0.0-0.2) /100WBC PT 13.1 H (10.9-12.4) SEC INR 1.1 (0.9-1.1) APTT 33.7 (26.7-34.1) SEC D-Dimer High Sensitivty < 150 NG/ML Sodium 140 (135-145) mmol/L Potassium 4.5 (3.3-5.1) mmol/L Chloride 106 (96-108) mmol/L Carbon Dioxide 27 (22-29) mmol/L Anion Gap 12 (12-20) BUN 8 L (9-16) mg/dL Creatinine 0.62 (0.5-1.4) mg/dL Estim Creat Clear Calc 135.5 Estimated GFR > 60 Random Glucose 83 (60-115) mg/dL Calcium 9.5 (8.4-10.2) mg/dL Total Bilirubin 0.8 (0.0-1.0) mg/dL AST 18 (5-31) U/L ALT 9 (0-31) U/L Alkaline Phosphatase 91 (39-117) U/L Troponin I High Sens < 2.7 (<3.5-17.0) ng/L Total Protein 7.7 (6.5-8.0) g/dL Albumin 4.7 (3.5-5.0) g/dL Urine Color Yellow Urine Appearance Clear Urine pH 5.5 (5.0-9.0) Ur Specific [place] 1.015 (1.005-1.025) Urine Protein Negative (Neg-Trace) mg/dL Urine Glucose (UA) Negative (Negative) mg/dL Urine Ketones 80 (Negative) mg/dL Urine Blood Negative (Negative) Urine Nitrite Negative (Negative) Ur Leukocyte Esterase Negative (Negative) COVID-19 (CAMILA) Negative (Negative) COVID-19 Clin Com See Note Monoscreen Negative (Negative) Influenza Type A (ALYSE) Negative (Negative) Influenza Type B (ALYSE) Negative (Negative) Influenza A & B Note See Note S. pyogenes GrpA ALYSE Negative (Negative) Independent Interpretation I performed an independent interpretation of an: EKG and Plain X-Ray Radiology Impression Discussion of test interpretation with radiology: I have reviewed the radiologist's reading. Scores Heart Score History: -0- slightly suspicious ECG: -0- normal Age: -0- < or = 45 Risk factory: -0- no risk factors known Troponin: -0- < or = normal limit Score: 0 Risk: 1.7% Discharge Plan Discharge Clinical Impression: Atypical chest pain Patient Disposition: Home, Self-Care Instructions: Chest Wall Pain (ED) Prescriptions: New azithromycin [Zithromax Z-Aquiles] 250 mg tablet See Rx Instructions .ROUTE .COMPLEX Qty: 6 0RF Rx Instructions: For 250 mg dose pack: take 500 mg today (day 1), then 250 mg for 4 days (days 2-5) prednisone 20 mg tablet 20 mg PO DAILY 7 Days Qty: 7 0RF No Action meclizine 25 mg tablet 25 mg PO TID PRN (Reason: dizziness) Qty: 14 0RF Discharge Date/Time: 01/25/25 18:18 Print Language: Botswanan
[2025-01-25 16:33] LABS: MANUAL DIFF FLAG NO
[2025-01-25 16:35] LABS: Hematocrit 34.7 % (37.0-47.0); Hemoglobin 11.7 g/dl (12.0-16.0); Imm Gran Abs Auto 0.03 X10*3/uL (0.00-0.03); Imm Gran Pct Auto 0.5 % (0.0-0.4); Lymphocytes Absolute Auto 1.5 X10*3/uL (1.2-4.9); Mean Corpuscular HGB Conc 33.7 g/dl (31.0-35.0); Mean Corpuscular Hemoglobin 30.3 pg (27.0-33.0); Mean Corpuscular Volume 89.9 fL (80.0-98.0); NRBC Abs Auto 0.000 X10*3/uL (0.0-0.012); NRBC Pct Auto 0.0 /100WBC (0.0-0.2); Platelet Count 408 X10*3/uL (160-400); Red Blood Count 3.86 X10*6/uL (4.20-5.50); White Blood Count 6.2 X10*3/uL (4.8-10.8)
[2025-01-25 16:41] LABS: INTERNATIONAL NORM RATIO 1.1 (0.9-1.1); Prothrombin Time 13.1 SEC (10.9-12.4)
[2025-01-25 16:43] LABS: Partial Thromboplastin Time 33.7 SEC (26.7-34.1)
[2025-01-25 16:51] LABS: Alanine Aminotransferase 9 U/L (0-31); Albumin Level 4.7 g/dL (3.5-5.0); Alkaline Phosphatase 91 U/L (39-117); Anion Gap 12 (12-20); Aspartate Amino Transferase 18 U/L (5-31); Blood Urea Nitrogen 8 mg/dL (9-16); Calcium 9.5 mg/dL (8.4-10.2); Carbon Dioxide 27 mmol/L (22-29); Chloride 106 mmol/L (96-108); Creatinine Clr Calc Pharmacy 135.5; Estimated Glomerular Filt Rate > 60; Potassium 4.5 mmol/L (3.3-5.1); Sodium 140 mmol/L (135-145); Total Protein 7.7 g/dL (6.5-8.0)
[2025-01-25 16:55] LABS: IDNOW Serial# 08D9AD1C; Strep A Nucleic Acid Negative (Negative)
[2025-01-25 16:56] LABS: IDNOW Serial# 55D5AD1C; Influenza B2 Negative (Negative)
[2025-01-25 16:57] LABS: IDNOW Serial# 58CA691E
[2025-01-25 16:58] LABS: COVID-19 Test Negative (Negative)
[2025-01-25 17:03] LABS: Troponin-I High Sensitivity < 2.7 ng/L (<3.5-17.0)
[2025-01-25 17:49] LABS: D Dimer High Sensitivity < 150 NG/ML
[2025-01-25 17:56] LABS: Appearance Urine Clear; Glucose Urine UA Negative (Negative); PH 5.5 (5.0-9.0); Specific Gravity - Urine 1.015 (1.005-1.025)
--- OUTSIDE RECORDS SUMMARY | 2025-01-25 18:32 | XMS_ITS | Clinical Summary ---
Author Organization [facility] Address [address] [place] [address] Phone Care Team Providers Care Curbstone Setter Name Role Phone Yunier Lmaa MD Primary Care Provider [phone] Allergies No known active allergies Medications * This document contains information received from the source organization and may not represent a complete record from that organization. hydrOXYzine (ATARAX) 25 MG tablet Take 25 mg by mouth 2 (two) times a day as needed for anxiety. 12/17/2022 Active FLUoxetine (PROZAC) 20 MG capsule Take 20 mg by mouth daily. 06/17/2023 Active Active Problems Problem Noted Date Diagnosed Date Other specified anxiety disorders 12/05/2022 Stress reaction 11/28/2022 Resolved Problems Problem Noted Date Diagnosed Date Resolved Date Suicidal ideation 11/27/2022 12/05/2022 Encounters Date Type Department Care Team Description 01/21/2025 7:19 PM EDT - 01/21/2025 11:59 PM EDT Hospital Encounter [facility] [address] [place] [address] Yunier Lama MD Discharge Disposition: Home or Self Care 01/20/2025 11:50 PM EDT - 01/21/2025 1:16 AM EDT Emergency [facility] [address] [place] [address] Hugo Smyth DO Discharge Disposition: Home or Self Care 01/18/2025 3:12 PM EDT - 01/18/2025 7:05 PM EDT Emergency [facility] [address] [place] [address] Discharge Disposition: Home or Self Care 01/18/2025 11:50 AM EDT Office Visit [facility] [address] [place] [address] Trina Tan CNP Acute cough (Primary Dx); Nausea and vomiting, unspecified vomiting type 12/27/2024 4:39 PM EDT - 12/27/2024 7:45 PM EDT Emergency [facility] [address] [place] [address] Den Mcnulty MD Discharge Disposition: Home or Self Care 11/25/2024 3:26 PM EDT - 11/25/2024 11:59 PM EDT Hospital Encounter [facility] [address] [place] [address] [place] [address] Yunier Lama MD Discharge Disposition: Home or Self Care from Last 3 Months Social History Tobacco Use Types Packs/Day Years Used Date Smoking Tobacco: Never Smokeless Tobacco: Never Tobacco Cessation:Counseling Given: Not Answered Alcohol Use Standard Drinks/Week Comments Never 0 [...] Don't know 09/11/2024 4: 50 AM EDT Last Filed Vital Signs Vital Sign Reading [...] Mass Index 22.6 01/20/2025 11:28 PM EDT Plan of Treatment Health Maintenance Due Date Last Done Comments DEVELOPMENTAL/BEHAVIORAL SCREENING (PHQ, PSC, or SWYC) 2007 DEPRESSION SCREENING 2016 ADOLESCENT UNIVERSAL LIPID SCREENING 2021 HEPATITIS C SCREENING 2022 HIV ONE-TIME SCREENING (18-65 YEARS) 2022 INFLUENZA VACCINE (#1) 2024 , 01/18/2023, 03/01/2022, Additional history exists MENINGOCOCCAL VACCINES (B) (2 of 2 - Trumenba SCDM 2-dose series) 11/23/2024 05/26/2024 COVID-19 VACCINE ( season) 2024 10/26/2024, 06/27/2023, 03/01/2022, Additional history exists CHLAMYDIA SCREENING 08/17/2025 08/17/2024, 06/27/2023, 08/28/2022 COMBINED DTaP,Tdap,Td (6 - Td or Tdap) 10/05/2025 10/06/2015, 08/06/2008, 2004, Additional history exists SMOKING Hx and SMOKELESS TOBACCO SCREENING 01/18/2026 01/18/2025 MMR VACCINES Completed 08/09/2009, 09/12/2005 VARICELLA VACCINES Completed 08/09/2009, 06/27/2005 HPV VACCINES Completed 12/29/2018, 12/20/2017 HEPATITIS A VACCINES Completed 01/28/2020, 12/30/19 19 MENINGOCOCCAL VACCINES (ACWY) Completed 02/10/2021 HIB VACCINES Aged Out No longer eligi ble based on patient's age to complete this topic PNEUMOCOCCAL VACCINES (0-49 years) Aged Out No longer eligible based on patient's age to complete this topic Medical Devices Not on file Procedures Procedure Name Priority Date/Time Associated Diagnosis Comments URINE CULTURE Routine 01/21/2025 4:41 PM EDT Frequency of micturition ECG 12-LEAD STAT 01/21/2025 12:10 AM EDT HCG, SERUM QUALITATIVE STAT 01/18/2025 4:49 PM EDT TROPONIN STAT 01/18/2025 4:49 PM EDT D-DIMER STAT 01/18/2025 4:49 PM EDT XR CHEST PA AND LATERAL 2 VIEWS Routine 01/18/2025 3:23 PM EDT CBC AND DIFFERENTIAL STAT 01/18/2025 3:15 PM EDT BASIC METABOLIC PANEL STAT 01/18/2025 3:15 PM EDT ECG 12-LEAD STAT 01/18/2025 3:11 PM EDT POCT COVID-19 RT-PCR/INFLUENZA A & B/RSV CEPHEID Routine 01/18/2025 12:19 PM EDT URINALYSIS W/REFLEX URINE CULTURE STAT 12/27/2024 5:42 PM EDT MAGNESIUM STAT 12/27/2024 5:30 PM EDT HCG, SERUM QUALITATIVE STAT 12/27/2024 5:30 PM EDT BASIC METABOLIC PANEL STAT 12/27/2024 5:30 PM EDT CBC AND DIFFERENTIAL STAT 12/27/2024 5:30 PM EDT ECG 12-LEAD STAT 12/27/2024 4:42 PM EDT HC TB CELL MEDIATED ANTIGN RESPNSE GAMMA INTERFERON Routine 11/25/2024 3:27 PM EDT Routine general medical examination at a health care facility FERRITIN Routine 11/25/2024 3:27 PM EDT Routine general medical examination at a health care facility TSH WITH REFLEX Routine 11/25/2024 3:27 PM EDT Routine general medical examination at a health care facility FREE T4 Routine 11/25/2024 3:27 PM EDT Routine general medical examination at a health care facility CHLAMYDIA TRACHOMATIS AND NEISSERIA GONORRHOEAE NUCLEIC ACID DETECTION Routine 08/17/2024 3:16 PM EDT Encounter for screening for infections with a predominantly sexual mode of transmission from Last 3 Months or Most Recently Relevant to Health Maintenance Results * (ABNORMAL) Urine Culture (01/21/2025 4:41 PM EDT) Special Requests None 01/21/2025 7:20 PM EDT [facility] Urine Culture 10,000 to 100,000 colony forming units per mL MIXED DIEGO (3 OR MORE COLONY TYPES) Culture indicates contamination . Please resubmit if necessary.(A) 01/23/2025 12:27 PM EDT [facility] Urine 01/21/2025 4:41 PM EDT 01/21/2025 7:28 PM EDT us Yunier Lama MD MICROBIOLOGY - GENERAL ORDE RACHEL Final Result Performing Organization Address City/[facility]/ZIP Co de Phone Number [address] [address] * ECG 12-LEAD (01/21/2025 12:10 AM EDT) Only the most recent of3 resultswithin the time period is included. Ventricular Rate EKG/MIN 70 BPM [facility] Atrial Rate 70 BPM [facility] MT Interval 128 ms [facility] QRS Duration 74 ms [facility] QT Interval 382 ms [facility] QTC Interval 412 ms [facility] P [place] 48 degrees [facility] R Wave [place] 53 degrees [facility] T Wave [place] 19 degrees [facility] 01/21/2025 12:1 0 AM EDT 01/21/2025 7:43 AM EDT Narrative [facility] - 01/21/2025 7:43 AM EDT Normal sinus rhythm Otherwise normal ECG When compared with ECG of 18-Jan-2025 15:11, Compared to the previous ekg, no significant change. Confirmed by Hong Elizalde ([id number]) on 01/21/2025 7:43:13 AM us Win Whitney MD ECG ORDERABLES Final Resul t [facility] * HCG, serum qualitative (01/18/2025 4:49 PM EDT) Only the most recent of2 resultswithin the time period is included. HCG, QUALITATIVE Negative Negative IU/L [facility] Blood 01/18/2025 4:49 PM EDT 01/18/2025 4:55 PM EDT Tati Hardinghey PA-C LAB BLOOD ORDERABLES Final Result [address] [address] * D-dimer (01/18/2025 4:49 PM EDT) D-DIMER 441 <500 ng/mL FEU [facility] Comment:In patients with low to moderate pre-test probability scores for VTE (PE or DVT), a D-Dimer cut-off less than 500 ng/mL (FEU) has a negative predictive value (NPV) of 97 to 100%. Blood 01/18/2025 4:49 PM EDT 01/18/2025 4:55 PM EDT Tati Hardinghey PA-C LAB BLOOD ORDERABLES Final Result Performing Organization Address [facility] Co de Phone Number [address] [address] * Troponin (01/18/2025 4:49 PM EDT) Troponin-T, HS Gen5 <6 0 - 9 ng/L [facility] Blood 01/18/2025 4:49 PM EDT 01/18/2025 4:56 PM EDT Tati Sri HeyoyasmineChasing Savingsy PA-C LAB BLOOD ORDERABLES Final Result Performing Organization Address City/[facility]/ZIP Co de Phone Number [address] [address] * XR CHEST PA AND LATERAL 2 VIEWS (01/18/2025 3:23 PM EDT) Anatomical Region Laterality Modality Chest Computed Radiogr aphy 01/18/2025 4:15 PM EDT Impressions 01/18/2025 4:16 PM EDT No acute abnormality. Narrative 01/18/2025 4:16 PM EDT XR CHEST PA AND LATERAL 2 VIEWS Referring clinician's provided indication for this examination in [facility]: Pain; Dyspnea (Shortness of Breath) COMPARISON: None FINDINGS: Devices/Tubes/Lines: None. Lungs: No focal consolidation or pulmonary edema. Pleura: No pleural effusions or pneumothorax. Heart/Mediastinum: Normal cardiomediastinal silhouette. Bones/Soft Tissues: No significant abnormality. Procedure Note Kimber Taylor MD - 01/18/2025 XR CHEST PA AND LATERAL 2 VIEWS Referring clinician's provided indication for this examination in [facility]:Pain; Dyspnea (Shortness of Breath) COMPARISON: None FINDINGS: Devices/Tubes/Lines: None. Lungs: No focal consolidation or pulmonary edema. Pleura: No pleural effusions or pneumothorax. Heart/Mediastinum: Normal cardiomediastinal silhouette. Bones/Soft Tissues: No significant abnormality. IMPRESSION: No acute abnormality. Marito Caffyn DO IMG XR CHEST Final Result * (ABNORMAL) CBC and differential (01/18/2025 3:15 PM EDT) Only the most recent of2 resultswithin the time period is included. WBC 7.95 4.00 - 11.00 K/uL [facility] RBC 4.16 4.00 - 5.20 M/uL [facility] HGB 12.4 12.0 - 16.0 g/dL [facility] HCT 37.2 36.0 - 46.0 % [facility] PLT 399 150 - 450 K/uL [facility] MCV 89.4 80.0 - 100.0 fL [facility] MCH 29.8 27.0 - 31.0 pg [facility] MCHC 33.3 32.0 - 36.0 g/dL [facility] RDW 13.1 11.5 - 14.5 % [facility] MPV 10.2 8.4 - 12.0 fL [facility] NRBC 0.00 0.00 /100 WBCs [facility] ABSOLUTE NRBC 0.00 0.00 K/uL [facility] DIFF METHOD Auto [facility] NEUTS 77.0(H) 48.0 - 76.0 % [facility] LYMPHS 16.4(L) 18.0 - 41.0 % [facility] MONOS 5.4 4.0 - 11.0 % [facility] EOS 0.5 0.0 - 5.0 % [facility] BASOS 0.4 0.0 - 1.5 % [facility] Granulocytes, immature (%) 0.3 0.0 - 0.9 % [facility] ABSOLUTE NEUTS 6.13 1.92 - 7.60 K/uL [facility] ABSOLUTE LYMPHS 1.30 0.72 - 4.10 K/uL [facility] ABSOLUTE MONOS 0.43 0.16 - 1.10 K/uL [facility] ABSOLUTE EOS 0.04 0.00 - 0.50 K/uL [facility] ABSOLUTE BASOS 0.03 0.00 - 0.15 K/uL [facility] Granulocytes, immature 0.02 0.00 - 0.09 K/uL [facility] Blood 01/18/2025 3:15 PM EDT 01/18/2025 3:37 PM EDT us Marito Rivasyn DO LAB BLOOD ORDERABLES Final Resu lt [facility] [address] [place] [address] * Basic metabolic panel (01/18/2025 3:15 PM EDT) Only the most recent of2 resultswithin the time period is included. SODIUM 141 133 - 146 mmol/L [facility] CHLORIDE 103 96 - 108 mmol/L [facility] POTASSIUM 4.6 3.3 - 5.1 mmol/L [facility] CO2 24 21 - 35 mmol/L [facility] BUN 8 6 - 19 mg/dL [facility] CREATININE 0.50 0.5 - 1.5 mg/dL [facility] GLUCOSE 90 70 - 99 mg/dL [facility] CALCIUM 10.1 8.4 - 10.3 mg/dL [facility] EGFR >120 >59 mL/min/1.7 3m2 [facility] Comment:Estimated glomerular filtration rate calculated using the CKD-EPI refit equation. ANION GAP 19 10 - 20 mmol/L [facility] Blood 01/18/2025 3:15 PM EDT 01/18/2025 3:37 PM EDT us Marito Mcgee DO LAB BLOOD ORDERABLES Final Resu lt [address] [address] * POCT COVID-19 RT-PCR/Influenza A & B/RSV (Cepheid) (01/18/2025 12:19 PM EDT) Pathologist [facility] RSV PCR Negative Negative [facility] SARS-CoV-2 (COVID-19) Negative Negative [facility] POC Influenza A PCR Negative Negative [facility] Influenza B PCR Negative Negative [facility] 01/18/2025 12:1 9 PM EDT 01/18/2025 12:56 PM EDT us Trina Tan CNP POINT OF CARE TE ST ORDERABLES Final Result [facility] [address] [address], [facility] [phone] * (ABNORMAL) Urinalysis w/reflex Urine Culture (12/27/2024 5:42 PM EDT) COLOR Yellow Yellow [facility] CLARITY Clear [facility] GLUCOSE Negative Negative [facility] BILI Negative Negative [facility] KETONES 3+(A) Negative [facility] SPECIFIC GRAVITY 1.025 1.005 - 1.030 [facility] BLOOD Negative Negative [facility] PH 6.0 5.0 - 8.0 [facility] Protein-UA Negative Negative [facility] NITRITE Negative Negative [facility] Leukocyte esterase, ur Negative Negative [facility] Urine (Urine) 12/27/2024 5:4 2 PM EDT 12/27/2024 5:50 PM EDT Den Mcnulty MD URINE ORDERABLES Final Re sult Performing Organization Address City/[facility]/ZIP Co de Phone Number [address] [address] * Magnesium (12/27/2024 5:30 PM EDT) Pathologist [facility] MAGNESIUM 2.1 1.6 - 2.6 mg/dL [facility] Blood 12/27/2024 5:30 PM EDT 12/27/2024 5:40 PM EDT Den Mcnulty MD LAB BLOOD ORDERABLES Ignacia l Result Performing Organization Address [facility]/ZIP Co de Phone Number [address] [address] * Quantiferon-TB Gold (11/25/2024 3:27 PM EDT) QuantiFERON-TB Gold Negative Negative [facility] Comment: (NOTE) No interferon-gamma response to M. tuberculosis antigens was detected. Latent infection with M. tuberculosis is unlikely. A single negative result does not exclude infection with M. tuberculosis. In patients at high risk for M.tuberculosis infection, a second test should be considered in accordance with the 2017 ATS/IDSA/CDC Clinical Practice Guidelines for Diagnosis of Tuberculosis in Adults and Children [Gordo VALVERDE et. al. Clin. Infect. Dis. 2017;64(2):111-115]. The reference range for the 'TB1 Ag minus Nil Result' and 'TB2 Ag minus Nil Result' is an Interferon-gamma level <0.35 IU/mL. TB1 Ag minus Nil NEG 0.01 IU/mL [facility] TB2 Ag minus Nil NEG 0.01 IU/mL [facility] Mitogen minus Nil 9.95 IU/mL [facility] [address] Nil Result 0.05 IU/mL [facility]PATH [facility] [address] Blood 11/25/2024 3:27 PM EDT 11/25/2024 3:34 PM EDT Yunier Lama MD LAB BLOOD ORDERABLES Final Result Performing Organization Address [facility] Co de Phone Number [facility] MED[facility] [place] [address] [place] [address] * TSH with reflex (11/25/2024 3:27 PM EDT) TSH 2.44 0.27 - 4.20 uIU/mL [facility] Blood 11/25/2024 3:27 PM EDT 11/25/2024 3:34 PM EDT Yunier Lama MD LAB BLOOD ORDERABLES Final Result Performing Organization Address [facility]/ZIP Co de Phone Number [address] [address] * Free T4 (11/25/2024 3:27 PM EDT) FREE T4 1.0 0.9 - 1.7 ng/dL [facility] Blood 11/25/2024 3:27 PM EDT 11/25/2024 3:34 PM EDT Yunier Lama MD LAB BLOOD ORDERABLES Final Result Performing Organization Address [facility]/ZIP Co de Phone Number [address] [address] * Ferritin (11/25/2024 3:27 PM EDT) FERRITIN 17 13 - 150 ug/L [facility] Blood 11/25/2024 3:27 PM EDT 11/25/2024 3:34 PM EDT us Yunier Lama MD LAB BLOOD ORDERABLES Final Result [address] [address] * Chlamydia trachomatis and Neisseria gonorrhoeae Nucleic Acid Amplification (08/17/2024 3:16 PM EDT) CHLAMYDIA TRACHOMATIS Not Detected Not Detected [facility] NEISERIA GONORRHOEAE Not Detected Not Detected [facility] SPECIMEN TYPE swab [facility] 08/17/2024 3:16 PM EDT 08/17/2024 4:10 PM EDT Yunier Lama MD NON CULTURE MICROBIOLOGY Fi nal Result Performing Organization Address [facility]/ZIP Co de Phone Number [address] [address] from Last 3 Months or Most Recently Relevant to Health Maintenance Insurance [facility] [employer] [facility] [employer] [facility] [employer] [employer] [facility] [employer] [facility] [employer] [place] [phone] Advance Directives For more information, please contact: [phone] (9AM - 5PM [facility]/[facility]_[place], Saturday-Saturday) * Full Code (Latest Code Status on File) Date Activated Date Inactivated Comments 11/28/2022 12:20 PM Question Answer Comments Code Status Confirmed With: Other (specify below ) Code Discussion Comments: chart review Care Teams Curbstone Setter Relationship Specialty Start Date End Date Yunier Lama MD [address] [place] [address] 2 [place] [address] PCP - General Pediatrics 11/08/22 Additional Source Comments The information contained in this document represents components of the legal health record. It is not the complete legal health record.[facility]
--- OUTSIDE RECORDS SUMMARY | 2025-01-25 18:33 | XMS_ITS | Encounter Summary ---
Author Organization [facility] Address [address] [place] [address] Phone Care Team Providers Care Audio Visual Production Specialist Name Role Phone Yunier Lama MD Primary Care Provider [phone] Reason for Visit * Reason Onset Date Comments Chest Pain 01/25/2025 Encounter Details Date Type Department Care Team (Late st Contact Info) Description 01/25/2025 Telephone [facility] - [place] [address] [place] [address] Destini Garcia LPN [address] [facility] [address] [place] [address] Chest Pain Social History Tobacco Use Types Packs/Day Years [...] PM EST documented as of this encounter Miscellaneous Notes * Telephone Encounter - Destini Garcia LPN - 01/25/2025 2:19 PM EDT Mom called stating that Santos is still experiencing chest pain and as we are speaking, Santos is experiencing chest pain, sob, and a sore throat. Advised mom to bring Santos to the ER immediately to beevaluated. Mom understood. documented in this encounter Plan of Treatment Upcoming Encounters Date Type Department Care Team (Late st Contact Info) Description 02/08/2025 1:40 PM EDT Office Visit [facility] Pediatrics - [address], [address] [place] [address] Yunier Lama MD [address] [place] [address] documented as of this encounter Visit Diagnoses Not on filedocumented in this encounter Care Teams Audio Visual Production Specialist Relationship Specialty Start Date End Date Yunier Lama MD [address] [place] [address] PCP - General 06/12/16 documented as of this encounter
--- OUTSIDE RECORDS SUMMARY | 2025-01-25 18:33 | XMS_ITS | Encounter Summary ---
Author Organization [facility] Address [address] [place] [address] Phone Care Team Providers Care Fish Salter Name Role Phone Yunier Lama MD Primary Care Provider [phone] Reason for Visit * Reason Onset Date Comments SSRI Follow-up 01/22/2025 Encounter Details Date Type Department Care Team ([facility] st Contact Info) Description 01/22/2025 Telephone [facility] - [facility] [place] [address] [facility], [address] [address] Fide Santiago 193 [facility] [address] [place] [address] SSRI Follow-up Social History Tobacco Use Types Packs/Day Years [...] encounter Miscellaneous Notes * Telephone Encounter - Tara Reinoso - 01/22/2025 9:51 AM EDT Portal message sent to family requesting a call to schedule SSRI f/u * Telephone Encounter - Fide Santiago - 01/22/2025 9:32 AM EDT Patient has been added to the SSRI registry. Patient started Escitalopram on 01/21 Patient needs SSRI 7-10 follow up. Patient has a med check scheduled with JS on 02/08 documented in this encounter Plan of Treatment Upcoming Encounters Date Type Department Care Team (Late st Contact Info) Description 02/08/2025 1:40 PM EDT Office Visit [facility] Pediatrics - [address], [address] [place] [address] Yunier Lama MD [address] [place] [address] documented as of this encounter Visit Diagnoses Not on filedocumented in this encounter Care Teams Fish Salter Relationship Specialty Start Date End Date Yunier Lama MD [address] [place] [address] PCP - General 06/12/16 documented as of this encounter
--- OUTSIDE RECORDS SUMMARY | 2025-01-25 18:33 | XMS_ITS | Encounter Summary ---
Author Organization [facility] Address [address] [place] [address] Phone Care Team Providers Care Yarn Sorter Name Role Phone Yunier Lama MD Primary Care Provider [phone] Yunier Lama MD Primary Care Provider Encounter Details Date Type Department Care Team (Late st Contact Info) Description 07/29/2018 Ancillary Orders [facility], X-Ray - [address] [place] [address] Houston Soto MD [address] [place] [address], [address] [place] [address] [email or web address] Social History Tobacco Use Types Packs/Day Years Used Date Smoking Tobacco: Never Assessed Comments Unknown Sex and Gender Information Value Date Recorded Sex Assigned at Female 09/14/2017 1:05 PM EDT Legal Sex Female 8:43 PM EDT Gender Identity Female 09/14/2017 1:05 PM EDT Sexual Orientation Don't know 09/11/2024 4: 50 AM EDT documented as of this encounter Plan of Treatment Not on file documented as of this encounter Results * XR KNEE 4 OR MORE VIEWS (RIGHT) (07/29/2018 6:06 PM EDT) Anatomical Region Laterality Modality Knee Right Radiographic Jazmine ging 07/29/2018 6:09 PM EDT Impressions 07/29/2018 6:11 PM EDT Negative radiographs of the knee. POS - [id number] Narrative 07/29/2018 6:11 PM EDT HISTORY: Pain since fall five days ago. COMPARISON: None. FINDINGS: Four views. No evidence of fracture or dislocation. The joint space is well-maintained. Mineralization appears normal. No evidence of joint effusion. Procedure Note Jeevan Lyles MD - 07/29/2018 HISTORY: Pain since fall five days ago. COMPARISON: None. FINDINGS: Four views. No evidence of fracture or dislocation. The joint space iswell-maintained. Mineralization appears normal. No evidence of jointeffusion. IMPRESSION: Negative radiographs of the knee. POS - [id number] Houston Soto MD IMG XR LOWER EXTREMITY Final Result documented in this encounter Visit Diagnoses Diagnosis Pain Generalized pain Pain Generalized pain documented in this encounter Additional Health Concerns Infection Onset Date Last Indicated Resolved Time CoV-Risk 03/20/2022 03/29/2022 04/09/2022 1:21 AM EST Influenza 03/29/2022 03/29/2022 04/05/2022 1:23 AM EST CoV-Risk 12/15/2022 12/15/2022 12/26/2022 1:21 AM EDT CoV-Risk 06/09/2023 06/09/2023 06/20/2023 1:22 AM EST documented as of this encounter Care Teams Yarn Sorter Relationship Specialty Start Date End Date Yunier Lama MD [address] [place] [address] PCP - General Pediatrics 08/20/17 11/07/22 Yunier Lama MD [address] [place] [address] PCP - General Pediatrics 11/08/22 documented as of this encounter Additional Source Comments The information contained in this document represents components of the legal health record. It is not the complete legal health record.[facility]
--- OUTSIDE RECORDS SUMMARY | 2025-01-25 18:33 | XMS_ITS | Encounter Summary ---
Author Organization [facility] Address [address] [place] [address] Phone Care Team Providers Care Mechanical Technical Service Specialist Name Role Phone Yunier Lama MD Primary Care Provider [phone] Yunier Lama MD Primary Care Provider Encounter Details Date Type Department Care Team (Late st Contact Info) Description 03/24/2018 Ancillary Orders [facility], X-Ray [address], [place] [address] Emily Zuniga, [facility] [address] [facility], [address] [place] [address] [email or web address] Left leg pain Social History Tobacco Use Types Packs/Day Years [...] as of this encounter Results * XR Tibia Fibula 2 Views (Left) (03/24/2018 9:40 AM EST) Anatomical Region Laterality Modality Leg Left Radiographic Jazmine ging 03/24/2018 10:0 4 AM EST Impressions 03/24/2018 10:08 AM EST No clear explanation for pain and limp. POS - [id number] Narrative 03/24/2018 10:08 AM EST HISTORY: Chronic pain, limp. COMPARISON: None. VIEWS: AP and lateral views. FINDINGS: No findings suspicious for fractures. No subluxations or dislocations. No periosteal reactions or cortical erosions. No suspicious lytic or blastic lesions within the bones. No suspicious soft tissue calcifications. Procedure Note Jeevan Lyles MD - 03/24/2018 HISTORY: Chronic pain, limp. COMPARISON: None. VIEWS: AP and lateral views. FINDINGS: No findings suspicious for fractures. No subluxations or dislocations.No periosteal reactions or cortical erosions. No suspicious lytic orblastic lesions within the bones. No suspicious soft tissuecalcifications. IMPRESSION: No clear explanation for pain and limp. POS - [id number] Emily Zuniga PEDORTHIST IMG XR LOW ER EXTREMITY Final Result documented in this encounter Visit Diagnoses Diagnosis Left leg pain Pain in soft tissues of limb Left leg pain Pain in soft tissues of limb documented in this encounter Additional Health Concerns Infection Onset Date Last Indicated Resolved Time CoV-Risk 03/20/2022 03/29/2022 04/09/2022 1:21 AM EST Influenza 03/29/2022 03/29/2022 04/05/2022 1:23 AM EST CoV-Risk 12/15/2022 12/15/2022 12/26/2022 1:21 AM EDT CoV-Risk 06/09/2023 06/09/2023 06/20/2023 1:22 AM EST documented as of this encounter Care Teams Mechanical Technical Service Specialist Relationship Specialty Start Date End Date Yunier Lama MD [address] [place] [id number] [email or web address] PCP - General Pediatrics 08/20/17 11/07/22 Yunier Lama MD [address] [place], [place] [address], [place] [address] [email or web address] PCP - General Pediatrics 11/08/22 documented as of this encounter Additional Source Comments The information contained in this document represents components of the legal health record. It is not the complete legal health record.[facility]
--- OUTSIDE RECORDS SUMMARY | 2025-01-25 18:33 | XMS_ITS | Encounter Summary ---
Author Organization [facility] Address [address] [place] [address] Phone Care Team Providers Care Lead Loader Name Role Phone Yunier Lama MD Primary Care Provider [phone] Encounter Details Date Type Department Care Team (Late st Contact Info) Description 11/28/2016 Conversion Encounter [address], [facility] [address] [place] [address] Yunier Lama MD [address] [place] [id number] Social History Tobacco Use Types Packs/Day Years Used Date Smoking Tobacco: Never Assessed Comments Unknown Sex and Gender Information Value Date Recorded Sex Assigned at Female 03/27/2024 3:46 PM EST Legal Sex Female 5:10 PM EST Gender Identity Female 05/14/2022 3:20 PM EST Sexual Orientation Choose not to answer 04/08/20 24 2:38 PM EST documented as of this encounter Plan of Treatment Upcoming Encounters Date Type Department Care Team (Late st Contact Info) Description 02/08/2025 1:40 PM EDT Office Visit [address], [address] [place] [address] Yunier Lama MD [address] [place] [address] documented as of this encounter Visit Diagnoses Not on filedocumented in this encounter Care Teams Lead Loader Relationship Specialty Start Date End Date Yunier Lama MD [address] [place] [address] PCP - General 06/12/16 documented as of this encounter
--- OUTSIDE RECORDS SUMMARY | 2025-01-25 18:33 | XMS_ITS | Encounter Summary ---
Author Organization [facility] Address [address] [place] [address] Phone Care Team Providers Care Feller Hand Name Role Phone Yunier Lama MD Primary Care Provider Reason for Visit * Reason Onset Date Comments Lab Results 01/23/2025 Encounter Details Date Type Department Care Team (Late st Contact Info) Description 01/23/2025 Results Follow-Up [facility] Pediatrics - [address] [address] Emily Zuniga NP [address] [place] [address] Lab Results Social History Tobacco Use Types Packs/Day Years [...] Encounter - Destini Garcia LPN - 01/25/2025 11:53 AM EDT Santos called back. Santos asking if apt can be changed to 5:30 instead. Apt changed. * Telephone Encounter - Caroline Chavez LPN - 01/25/2025 11:35 AM EDT LM for pt to call the office. We had booked appt for 5 pm tonight. It did not go through. Appt madefor 5:15 pm instead. * Telephone Encounter - Shonna Fitch - 01/25/2025 11:02 AM EDT Santos called and lm in response to the call she got today. * Telephone Encounter - Caroline Chavez LPN - 01/25/2025 10:31 AM EDT LM to call back and speak with triage. * Telephone Encounter - Caroline Chavez LPN - 01/25/2025 10:30 AM EDT ----- Message from Emily Zuniga sent at 01/23/2025 3:47 PM EDT ----- ----- Message ----- From: Interface, Lab Results In Sent: 01/23/2025 12:27 PM EDT To: Yunier Lama MD * Telephone Encounter - Emily Zuniga NP - 01/23/2025 3:46 PM EDT Please call on Saturday morning for symptom update. If urinary symptoms persist please make sick visit for UA. The culture results indicated likely contamination. documented in this encounter Plan of Treatment Upcoming Encounters Date Type Department Care Team (Late st Contact Info) Description 02/08/2025 1:40 PM EDT Office Visit [facility] Pediatrics - [address], [address] [place] [address] Yunier Lama MD [address] [place] [address] documented as of this encounter Visit Diagnoses Not on filedocumented in this encounter Care Teams Feller Hand Relationship Specialty Start Date End Date Yunier Lama MD [address] [place] [address] PCP - General 06/12/16 documented as of this encounter
--- OUTSIDE RECORDS SUMMARY | 2025-01-25 18:34 | XMS_ITS | Encounter Summary ---
Author Organization [facility] Address [address] [place] [address] Phone Care Team Providers Care Provider Relations Rep Name Role Phone Yunier Lama MD Primary Care Provider [phone] Reason for Visit * Reason Onset Date Comments Med Refill 02/05/2023 Encounter Details Date Type Department Care Team (Late st Contact Info) Description 02/05/2023 Refill [facility] - [place] [address] [place] [address] Yunier Lama MD [address] [place] [address] Reactive depression Social History Tobacco Use Types Packs/Day Years Used Date Smoking Tobacco: Never Smokeless Tobacco: Never Alcohol Use Standard Drinks/Week Comments Never 0 (1 standard drink = 0.6 oz pur e alcohol) Hunger/Food Answer Date Recorded In the last 12 months, did y ou or your family ever eat less than you felt you should because there wasn't enough money for food? No 08/21/2021 Stable Housing Answer Date Recorded Are you worried that in the next 2 months you may not have stable housing? No 08/21/2021 Transportation Concerns Answer Date Rec orded In the last 12 months, have you or your family ever had to go without healthcare because you didn't have a way to get there? No 08/21/2021 Hazards in Home Answer Date Recorded Think about the place you li ve. Do you have problems with any of the following? Pests (mice or roaches), mold, no/not working smoke detectors, water leaks, no window guards. No 2021 Financing Utilities Answer Date Recorde d In the last 12 months, has t he electric, gas, oil, or water company threatened to shut off your services in your home? No 08/21/2021 Safety at Home Answer Date Recorded Are you or your family worried about feeling saf e in your home? No 08/21/2021 Outside Support Answer Date Recorded Do you feel that you need mo re support from other people or programs to help you care for yourself or your family? No 08/21/2021 Understanding Health Concerns Answer Da te Recorded Do you need help understandi ng your or your child's healthcare needs (diagnosis, medications, plan, etc.)? Yes 08/21/2021 Financing Health Concerns Answer Date R ecorded In the last 12 months, was t here a time when your child needed to see a doctor or get medications or supplies but could not because of cost? No 08/21/2021 Missing School or Work Answer Date Musa rded Did you or your child miss s chool or work because of a health problem that could have been avoided? No 08/21/2021 Comments No Sex and Gender Information Value Date Recorded Sex Assigned at Female 03/27/2024 3:46 PM EST Legal Sex Female 5:10 PM EST Gender Identity Female 05/14/2022 3:20 PM EST Sexual Orientation Choose not to answer 04/08/20 2:38 PM EST documented as of this encounter Miscellaneous Notes * Telephone Encounter - Dorothy Meneses LPN - 02/05/2023 4:37 PM EDT Refill requested for Jlane???s:Sertraline 100 mg Refill request source: [facility] This medication was last refilled on 11/08/22. Next appointment scheduled on 06/21/23. An office visit is not recommended. To be forwarded to provider for review. [facility]/pharmacy #[id number] - [place], [place] - [address] [place] [address] AT [address] TO [place] [address] [facility] [id number] PCP: Yunier Lama MD documented in this encounter Plan of Treatment Upcoming Encounters Date Type Department Care Team (Late st Contact Info) Description 02/08/2025 1:40 PM EDT Office Visit [facility] Pediatrics - [address], [address] [place] [address] Yunier Lama MD [address] [place] [address] documented as of this encounter Visit Diagnoses Diagnosis Reactive depression documented in this encounter Care Teams Provider Relations Rep Relationship Specialty Start Date End Date Yunier Lama MD [address] [place] [address] PCP - General 06/12/16 documented as of this encounter
--- OUTSIDE RECORDS SUMMARY | 2025-01-25 18:34 | XMS_ITS | Clinical Summary ---
Author Organization [facility] Address [address] [place] [address] Phone Care Team Providers Care Application Security Consultant Name Role Phone Yunier Lama MD Primary Care Provider [phone] Allergies Active Allergy Reactions Criticality Noted Date Comments Environmental Medium 09/16/2018 Seasonal - sneezing, runny nose Medications cetirizine (ZyrTEC Allergy) 10 MG tabletIndicati ons:Nasal congestion Take 1 tablet (10 mg total) by mouth nightly as needed for allergies. 30 tablet 1 01/22/20 25 025 Active escitalopram (Lexapro) 10 MG tabletIndicati ons:Anxiety 0.5 tab qd for 1 week then increase to 1 tab qd 30 tablet 01/22/20 25 Active hydrOXYzine 25 MG tablet TAKE 1 TABLET BY ORAL ROUTE 2 TIMES PER DAY NEEDED ANXIETY 12/18/19 23 025 Discontinued(Re order) FLUoxetine 20 MG capsule Take by mouth once daily. 09/18/19 24 025 Discontinued(Dr reji Donald) hydrOXYzine 25 MG tabletIndicati ons:Other specified anxiety disorders Take 1 tablet (25 mg total) by mouth every 4 (four) hours as needed for itching. 30 tablet 1 12/30/19 25 025 Discontinued hydrOXYzine 25 MG tabletIndicati ons:Other specified anxiety disorders TAKE 1 TABLET (25 MG TOTAL) BY MOUTH EVERY 4 (FOUR) HOURS NEEDED FOR ITCHING. 30 tablet 1 01/12/20 25 025 Discontinued(Me d reconciliation) Active Problems Problem Noted Date Diagnosed Date Costochondritis 01/21/2025 Assessment & Plan (01/21/2025 4:47 PM EDT): he patient's symptoms suggest costochondritis, a common [...] recommended as an alternative for pain management. Left-sided tinnitus 12/29/2024 Assessment & Plan (12/29/2024 11:25 AM EDT): This is likely secondary to a viral illness given the acute onset and it is improving. Her neurologic exam is reassuring. I do think that tinnitus is causing an increase in her anxiety. Will follow-up in 2 weeks if not resolved Anxiety 12/05/2022 Assessment & Plan (01/21/2025 4:49 PM EDT): Her anxiety appears to be worsening, which could be intensifying her chest pain. She has an upcoming appointment with a therapist at [facility] on 01/26/2025. Lexapro was prescribed, starting with half a pill daily for one week, then increasing to a full pill daily. Potential side effects, including increased irritability and suicidal thoughts, were discussed. Advised to consult her therapist for relaxation techniques and breathing exercises to manage her anxiety. CEDRIC 7 score is significantly elevated PHQ 9 [...] office and we'll decide what to do. Assessment & Plan (12/29/2024 11:21 AM EDT): Her anxiety is clearly increased over the past few days secondary to this viral illness and tenontitis. Her CEDRIC-7 and PHQ-9 scores are reflective of this. She denies this being something that is been going on for a long time and therefore I do not think she needs the fluoxetine. She has benefited from fluoxetine in the past. Instead we will treat this with periodic hydroxyzine. Assessment & Plan (01/18/2023 11:12 AM EDT): Anxiety is improving since being on the sertraline 100 mg daily for a long period of time. She will continue [facility] care Reactive depression 01/28/2020 Assessment & Plan (08/17/2024 5:19 PM EDT): She has had a longstanding history of depression and has been in the care of a psychiatrist. She has been on multiple medications. She stopped therapy and medications about a year ago and is noticed that she is starting to have more depressive symptoms. Her PHQ-9 scores are clearly very elevated and her ASQ score was 1. I asked her if she was suicidal or had thoughts about killing herself and she denied them. She has been in the process of finding a therapist through [facility] the organization where she used to have therapy. We reviewed the importance of safety and she does the suicide hotline and she has used crisis in the past. She does not feel she needs to go today. I will ask one of my behavioral health people to contact her tomorrow and to also evaluate her current status and to give her any support in finding a therapist which is the jackson to starting back on treatment. Assessment & Plan (09/17/2023 1:51 PM EDT): She is no longer taking valproic acid and fluoxetine. Apparently there is been some communication difficulties with her psychiatrist. I discussed in detail how important it is to use these medications not only for treatment but for prevention because we know that in the past she has had exacerbations requiring emergency room visits. I encouraged her to contact her provider and also discussed this with her therapist who she has an appointment with in the coming week. This is a chronic condition and not stable. Assessment & Plan (08/27/2023 2:29 PM EDT): Fluoxetine 20 mg and depekote She feels that she is improved since entering the partial hospitalization program. She is under the care of a therapist and a psychiatrist. CEDRIC-7 and PHQ-9 scores are still elevated and she will have this addressed by the her mental health providers Assessment & Plan (06/27/2023 10:53 AM EST): I am concerned that her depressive symptoms are increasing. She is now having cutting. She does see a therapist weekly at [facility] and a psychiatrist. She is currently on fluoxetine 20 mg. I spent time discussing with her the importance of safety and getting help for this problem. She will discuss this with her therapist next week. There may be some room to increase the fluoxetine although she has not been on this medication long enough to see the effects of this dose. We discussed suicidal thoughts which she denies. We discussed crisis which she is well aware of how to contact if any suicidal thoughts do begin This is a chronic condition and not stable. Assessment & Plan (01/18/2023 11:11 AM EDT): She was hospitalized over the summer for suicidal ideation. She was supposed to participate in a partial program at [facility] but she did not attend this because of work commitments. She says she is doing better and her PHQ-9 scores do show improvement. She denies any suicidal ideation. She now has a prescriber at [facility] who is continuing the sertraline 100 mg daily. I expressed to her my concern that she is not following through with her therapy at [facility]. Her concern is that it is interfering with her work schedule. We discussed how priorities are important and she should make sure that her health is taking care of so that she can continue to work. Assessment & Plan (11/08/2022 4:42 PM EDT): Sertraline 75 mg daily and therapy at [facility] Since increasing to 75 mg in general her anxiety and depressive symptoms have improved. Her CEDRIC-7 and PHQ-9 scores are improved as well going from severe to mild range. She did however have a bad episode of anxiety earlier this morning and went to the emergency room and talk to crisis. They felt that she was not in danger and did recommend to follow-up. I discussed with both her and her mom that since the medication is still working and she is still having some symptoms we should increase the dose to 100 mg. They are both in agreement. We also discussed importance of having a plan if anxiety or depressive symptoms return. She asked me about going away for the weekend and I thought it was not a great idea but [facility] evaluated her and felt that it would be okay. We did talk about what she should do if while she is away she has increased anxiety. The plan would be for her to call her mom and if that did not help she will go to a local emergency room. She will be safe and that she will be around people who will keep an eye on her Assessment & Plan (08/28/2022 6:05 PM EDT): She is clearly having more difficulties with depression showing signs of lack of interest, sleep eating and thoughts of self-harm. He is not currently suicidal which she clearly needs more intensive therapy. I have once again reiterated the importance of getting an evaluation and treatment through an agency such as [facility]. She and her mom have agreed to go to them tomorrow. As far as medication I think that we should increase the sertraline from 50 mg to 75 mg. I would like to see her again in a month. Both CEDRIC and PHQ scores show significant symptoms. Assessment & Plan (05/24/2022 4:26 PM EST): Increased depression and anxiety symptoms in the context of social isolation, stressors relating to family circumstance, and anticipating completion of high school. Stress response to school demands. Decreased appetite and eating over the past two months. Meets with school adjustment counselor weekly; has been on wait list for outpatient therapist at [facility] for several months. PLAN: Santos and her mom met one time with [facility] provider, but insurance will likely not cover future visits. Santos and mom engaged in planning for next steps. Next steps for Santos and mom: - Walk in to [facility] to initiate current 14 day follow up and referral support - Bring Teen Depression Self-Management guide to look through with school counselor - Look at [facility] website and research counseling resources and singing and dance classes or clubs - Research community choirs in [facility] - Initiate appetite reboot plan using strategy of phone alarms and easy to eat foods Assessment & Plan (05/16/2022 9:19 AM EST): Sertraline 40 mg qd Her depressive symptoms have been increasing. She is developed some body image concerns as well. PHQ-9 scores are increasing. No suicidal ideation or side effects. We discussed increasing the dose of sertraline to 50 mg, she will make sure she does take it every day, she is still not started to see a counselor and I encouraged her to call [facility] again to make sure that she is still on the waiting list in the meantime we will arrange for her to have at least 1 visit with our behavioral health clinicians. There have been issues with insurance covering it and I talked to our billing staff who will help clarify that and at least we can have 1 visit which will be pro ghada Assessment & Plan (03/01/2022 6:58 PM EST): Recent ED eval for cutting behavior (minimal injury). Denies SI. Overall feels her mood has been good. This event due to stress about a bad math grade and not being allowed to re- retake test. Not in counseling-- on waitlist at [facility]; discussed IBH for bridge care if things get worse. Sometimes forgets to take medication, or takes at inconsistent time, then notices changes in mood. Advised to make sure takes dose qD, regardless of time when accomplished Assessment & Plan (12/15/2021 4:00 PM EDT): 40 mg of zoloft She feels she is doing very well. She is very happy being back in school. She does not feel she needs any adjustments in the meds. She is not seeing a therapist now but can if she feels she needs it. phq scores are stable. Cedric 7 are good. F/u in 6 weeks Assessment & Plan (11/23/2021 8:40 AM EDT): Seen in ED 11/17 for depression, mood improved no SI /HI or safety concerns at this time. Reports is taking fluoxetine. Last rx appears to be liquid sertraline - will confirm bottle at home and continue current dose. Referral [facility] for reconnecting to counseling Assessment & Plan (08/21/2021 3:39 PM EDT): Sertraline 40 mg qd She is clearly doing better with improved mood given current treatment plan. Her PHQ is down to 7 which is much improved from prior test. We discussed the possibility of increasing because she is on a low dose but this is not necessary at this time because of how well she is doing. We will continue at this dose and follow-up in 3 months PHQ9 Screen(s) 08/21/2021 06/08/2021 05/23/2021 Score 7 7 15 This visit will count also count as one of the medication recheck appointments. Will have f/u in 3 mos Assessment & Plan (06/08/2021 4:14 PM EST): Doing much better since starting Zoloft 30 mg daily. She feels less anxiety and depression. No side effects. CEDRIC-7 and PHQ-9 scores are also showing improvement. We will increase to 40 mg daily and follow-up in 6 weeks. Assessment & Plan (05/23/2021 11:50 AM EST): No medication has an outside therapist She had a significant depressive exacerbation last week precipitated by a visit with her father. She ended up going to crisis in the emergency room. She and mom feel that she is doing much better now. She stopped the fluoxetine 6 months ago because she felt it was not working. While she verbally denies depressive symptoms now her PHQ-9 and CEDRIC-7 scores suggest otherwise. I suspect that she is having the symptoms and that this episode pushed her over the edge. We discussed trying to get her further from the edge by restarting medication. However, because she felt that the fluoxetine was not helpful we will go with a different SSRI. She cannot swallow pills so we will use liquid. Starting with Zoloft at a low dose of 25 mg daily. Follow-up in a month. We discussed possible side effects including reactivity and suicidal ideation Assessment & Plan (10/10/2020 4:24 PM EDT): Appears to be doing better than when medication was started in May but she still feels some improvement could occur. PHQ 9=8 Does have IH therapy. No recent suicidal thoughts. Will increase prozac from 20 to 30 mg. F/u in 1 mo Assessment & Plan (09/01/2020 4:43 PM EDT): Doing much better with prozac 20 mg PHQ down to 7 will continue at this dose Assessment & Plan (07/07/2020 2:46 PM EDT): Doing much better on prozac 20 mg no side effects. Much happier. Excellent response PHQ down to 11 will c/w with current dose f/u in 6 weeks Assessment & Plan (06/02/2020 9:07 AM EST): Has been having more depressive symptoms. Is seeing a therapist. Started fluoxitine 10 mg and no side effects. Denies any suicidal thoughts. Will increase to 20 mg after 2 weeks. Discussed possible side effects. F/u in 3 weeks. con't with therapy Assessment & Plan (05/05/2020 8:30 AM EST): Has not started the zoloft they feel it is not necessary yet. PHQ is elevated but ASQ is neg she does have a therapist. I discussed her weight and increasing her intake. Will monitor weight and mood and they will call me if worsens and would start the medication Assessment & Plan (03/31/2020 9:15 AM EST): Discussed in detail recommendations for starting SSRI. They will think about it. F/u in 1 mo This medication is not addictive. We will [...] office and we'll decide what to do. Assessment & Plan (03/25/2020 10:15 AM EST): Discussed at length today. Was somewhat incidentally noted when exploring weight change. Her PHQ9 and ASQ screenings were abnormal today. Family has been aware of her ongoing passive suicidal thoughts. Her therapist is also aware. Family currently feels safe with her at home and feels they can continue maintaining safety. She will see therapist next tomorrow. Implored them to discuss further. Also saw that at most recent [facility] there was also discussion about the possibility of adding a medication to her regimen for behavioral health support/help. Family states they spoke together and area still not interested in this possibility/approach. However, given her ongoing depressive symptoms with passive thoughts about SI, I asked that they strongly reconsider this thinking -- implored them to discuss with Santos and therapist over the next few days, in fact, given that therapy alone does not seem to be helping her to change thinking patterns enough. If still not motivated to pursue medication, might need to consider at least partial hospitalization program. Reviewed [facility] [employer] [facility] for possible crisis evaluation if worsening. Unfortunately, IBH not available today to perform additional safety assessment today. Asked family to return in no more than one week (ideally for extended visit) to discuss possibly starting a medication, after they have had time to discuss further. Mother and Santos feel safe with this plan, expressed understanding, but also verbalized understanding about [facility] [employer] [facility]/crisis if symptoms worsen. Assessment & Plan (01/28/2020 9:39 AM EDT): Recent grandparent . Seeing therapist. I think she might benefit from medication. PHQ =18. Will f/u in 1 mo Autism spectrum 10/31/2016 Assessment & Plan (06/27/2023 10:51 AM EST): She is high functioning and able to hold down a job Assessment & Plan (01/28/2020 9:35 AM EDT): Is seeing a therapist. Mom is concerned with screen time and I discussed with Santos how to limit and why that is important. Mom is concerned with the therapist not supporting this recommendation. Discussed for 15 min her therapy and they will give it another 2 mo and see if it improves. Also discussed weight loss which is mild but deserves f/u Assessment & Plan (12/29/2018 2:35 PM EDT): High functioning. Has IEP in school. Assessment & Plan (12/20/2017 3:12 PM EDT): Seems very high functioning. Has IEP but mom not aware of details Environmental and seasonal allergies 01/23/2016 Apraxia 09/30/2015 Assessment & Plan (12/20/2017 3:11 PM EDT): Has an IEP. Appears to be doing well Developmental delay 09/30/2015 Overview (10/30/2017): 2016 Getting IEP in the school OT and speech/language therapy at [facility]. Also dx with Borderline Intellectual ability level 09/2014 Doing well in school. IEP with language and math Doing very well in school with good grades. Has An IEP in place. Socially excellent. Speech much improved 09/2014 I am not sure she meets this dx but from previous notes I wonder if she has an intellectual disability Resolved Problems Problem Noted Date Diagnosed Date Resolved Date Vertigo 08/27/2023 08/17/2024 Assessment & Plan (09/17/2023 1:51 PM EDT): This problem has now resolved and I suspect was related to an inner ear viral infection Assessment & Plan (08/27/2023 2:28 PM EDT): This is a relatively new symptom developed over the past week. It may be associated with a viral illness and therefore could be resolving over the next few weeks. Other possible causes include medication side effect, electrolyte imbalance, thyroid problem. Her exam is reassuring for no acute neurological disorder. During the [place] test she experienced some dizziness and I wonder if this might help resolve her symptoms. After doing screening labs I will see her again in 2 weeks and if symptoms have not resolved or improved we will need to do further evaluation. Hordeolum of right upper eyelid 05/09/2022 08/28/2022 Periumbilical abdominal pain 10/10/2020 08/28/2022 Assessment & Plan (08/21/2021 3:29 PM EDT): Periodic but not often Assessment & Plan (10/17/2020 1:47 PM EDT): Screening labs negative Assessment & Plan (10/10/2020 4:21 PM EDT): Chronic. But with no red flags. No weight loss. No fevers. No vomiting no hematochezia. Will do blood work screening and try to eat more fiber. F/u in 1 mo Nutrition consult. Myopia of left eye 01/28/2020 Assessment & Plan (06/02/2020 9:08 AM EST): Having more problems with blurred vision will see opthal. Assessment & Plan (01/28/2020 9:35 AM EDT): Mild recheck at next PE not symptomatic Encounters Date Type Department Care Team Description 01/25/2025 Telephone [facility] [address] [place] [address] Destini Garcia LPN Chest Pain 01/23/2025 Results Follow-Up [facility] [place] [address] [place] [address] Emily Zuniga NP Lab Results 01/22/2025 Telephone [facility] - [facility] [address] [facility], [address] [address] Fide Santiago Follow-up 01/21/2025 3:50 PM EDT Office Visit [facility] [place] [address], [address] [place] [address] Yunier Lama MD Costochondritis (Primary Dx); Nasal congestion; Urinary frequency; Anxiety 01/14/2025 Telephone [facility] [address] [place] [address] Maria A Singleton LPN Chest Pain 01/09/2025 Refill [facility] [place] [address], [address] [place] [address] Yunier Lama MD Other specified anxiety disorders 12/29/2024 10:50 AM EDT Office Visit [facility] - [address], [address] [place] [address] Yunier Lama MD Other specified anxiety disorders (Primary Dx); Left-sided tinnitus 12/28/2024 Telephone [facility] [place] [address] [place] [address] Whitney Collins LPN Discharge Follow-Up - ED 11/26/2024 Results Follow-Up [address], [address] [place] [address] Yunier Lama MD from Last 3 Months Immunizations Immunization Administration Dates Next Due BCG 2004 COVID-19 Pfizer, bivalent, 12+ years 03/01/2022 COVID-19 Pfizer, monovalent, 12+ years DTP / HiB 12/19/2005 DTaP 08/06/2008, 5,2004,08/15 HPV Vaccine 9 Valent 12/29/2018,12/20/2017 Hep A, ped/adol 01/28/2020,12/29/2018 Hep B, ped/adol 09/28/2014, 5,2004,06/19 Hib (PRP-T) 2004,2004,2004 IPV 08/06/2008, 5,2004,08/15 Influenza 01/07/2009,02/13/2008 Influenza, injectable, quadr ivalent, preservative free 01/18/2023,03/01/2022,02/10/2021,01/27 Influenza, injectable, triva lent, preservative free 05/26/2024 Influenza, intranasal, quadrivalent 02/25/2015,1 ,03/05/2013 Influenza, intranasal, trivalent 01/10/2012,1009/2010,02/14/2010 MMR 08/09/2009,09/12/2005 Meningococcal B Trumenba 05/26/2024 Meningococcal Conj (Menactra) MCV4P 02/10/2021,0 10/06/2015 Pneumococcal Conjugate 09/12/2005,2004,01/26/2005,11/29 Tdap 10/06/2015 Varicella 08/09/2009,06/27/2005 Family History Relation Name Status Comments Child Children: Autis m, PDD Father Father: hearing problems, depression, anxiety Other 1 Autism, PDD Other 2 hearing problem s, depression, anxiety Social History Tobacco Use Types Packs/Day Years [...] not to answer 04/08/20 2:38 PM EST Last Filed Vital Signs Vital Sign Reading Time Taken Comments Blood Pressure 109/72 01/21/2025 3:55 PM EDT Pulse 80 01/21/2025 3:55 PM EDT Temperature 37.3 C (99.1 F) 01/21/2025 3:55 PM EDT Respiratory Rate - - Oxygen Saturation 99% 01/21/2025 3:55 PM EDT Inhaled Oxygen Concentration - - Weight 70 kg (154 lb 6.4 oz) 01/21/2025 3:55 PM EDT Height 168.9 cm (5' 6.5 ) 08/17/2024 3:02 PM EDT Body Mass Index 24.55 08/17/2024 3:02 PM EDT Plan of Treatment Upcoming Encounters Date Type Department Care Team (Late st Contact Info) Description 02/08/2025 1:40 PM EDT Office Visit [facility] - [address], [address] [place] [address] Yunier Lama MD [address] [place] [address] Health Maintenance Due Date Last Done Comments Influenza Vaccines (#1) 2024 05/26/19 25, 01/18/2023, 03/01/2022, Additional history exists Men B Vaccine (2 of 2 - Trum enba SCDM 2-dose series) 11/23/2024 05/26/2024 COVID-19 Vaccine (7 - 2024-2 6 season) 2024 10/26/2024, 06/27/2023, 03/01/2022, Additional history exists DTaP,Tdap,and Td Vaccines (7 - Td or Tdap) 10/05/2025 10/06/2015, 08/06/2008, 12/19/2005, Additional history exists Pneumococcal Vaccine Completed 09/12/2005, 03/14/2005, 01/26/2005, Additional history exists HIB Vaccines Completed 12/19/2005, 11/20, 2004, Additional history exists IPV Vaccines Completed 08/06/2008, 11/20, 2004, Additional history exists MMR Vaccines Completed 08/09/2009, 09/12/2005 Varicella Vaccines Completed 08/09/2009, 06/27/2005 Hepatitis B Vaccines Completed 09/28/2014, 2004, 2004, Additional history exists HPV Vaccines Completed 12/29/2018, 12/20/2017 Hepatitis A Vaccines Completed 01/28/2020, 12/30/19 19 Meningococcal Vaccine Completed 02/10/2021, 016 Chlamydia and Gonorrhea Screening Completed 08/17/2024, 06/27/2023, 08/28/2022 Procedures * Due to [place] state law, this organization might not be sharing sensitive test results. Procedure Name Priority Date/Time Associated Diagnosis Comments POCT URINALYSIS DIPSTICK Routine 01/21/2025 4:43 PM EDT Urinary frequency URINE CULTURE Routine 01/21/2025 4:41 PM EDT Urinary frequency T4, FREE Routine 11/25/2024 3:27 PM EDT Routine screening for STI (sexually transmitted infection) Well adult exam QUANTIFERON TB GOLD Routine 11/25/2024 3 :27 PM EDT Well adult exam TSH WITH REFLEX TO FREE T4 Routine 11/25/2024 3:27 PM EDT Well adult exam FERRITIN Routine 11/25/2024 3:27 PM EDT Well adult exam CHLAMYDIA AND GONORRHEA, AMPLIFIED Routine 08/17/2024 3:16 PM EDT Routine screening for STI (sexually transmitted infection) from Last 3 Months or Most Recently Relevant to Health Maintenance Results * Due to [place] state law, this organization might not be sharing sensitive test results. * (ABNORMAL) POCT Urinalysis Dipstick (01/21/2025 4:43 PM EDT) Color, Urine, POC Light Yellow Colorless or Yellow [facility] Clarity, Urine, POC Clear Clear or Slightly Cloudy [facility] Glucose, Urine, POC Negative Negative [facility] Bilirubin, Urine, POC Negative Negative [facility] Ketones, Urine, POC Small(A) Negative [facility] Specific [place], Urine, POC 1.005 1.003 - 1.030 [facility] Blood, Urine, POC Negative Negative [facility] pH, Urine, POC 6.0 4.6 - 8.0 [facility] Protein, Urine, POC Negative Negative [facility] Urobilinogen, Urine, POC 0.2 <=1, Normal mg/dL [facility] Nitrite, Urine, POC Negative Negative [facility] Leukocytes, Urine, POC Negative Negative [facility] Urine 01/21/2025 4:43 PM EDT us Yunier Lama MD POINT OF CARE TEST ORDERABLES Final Result [facility] [address], [address] [place] [address] * (ABNORMAL) Urine culture (01/21/2025 4:41 PM EDT) SPECIAL REQUESTS None 01/21/2025 7:20 PM EDT [facility] Urine Culture 10,000 to 100,000 colony forming units per mL MIXED [place]IEGO (3 OR MORE COLONY TYPES) Culture indicates contamination . Please resubmit if necessary.(A) 01/23/2025 12:27 PM EDT [facility] Urine (Urine) 01/21/2025 4:4 1 PM EDT 01/21/2025 7:28 PM EDT Narrative FREY SIENNA - 01/23/2025 12:27 PM EDT Yunier Lama MD LAB MICROBIOLOGY - GENERAL OR DERABLES Final Result Performing Organization Address [facility]/ZIP Co de Phone Number [facility] * TSH with Reflex to Free T4 (11/25/2024 3:27 PM EDT) Pathologist [facility] TSH W/REFLEX TO FT4 2.44 0.27 - 4.20 uIU/mL 11/25/2024 7:38 PM EDT [facility] Blood 11/25/2024 3:27 PM EDT 11/25/2024 3:34 PM EDT Yunier Lama MD LAB BLOOD ORDERABLES Final Re sult [facility] * Quantiferon TB Gold (11/25/2024 3:27 PM EDT) QUANTIFERON TB GOLD Negative Negative 11/27/2024 3:25 PM EDT [facility] Comment: (NOTE)No interferon-gamma response to M. tuberculosis antigens was detected. Latent infection with M. tuberculosis is unlikely. A single negative result does not exclude infection with M. tuberculosis. In patients at high risk for M.tuberculosis infection, a second test should be considered in accordance with the 2017 ATS/IDSA/CDC Clinical Practice Guidelinesfor Diagnosis of Tuberculosis in Adults and Children[Gordo VALVERDE et. al. Clin. Infect. Dis. 2017;64(2):111-115].The reference range for the 'TB1 Ag minus Nil Result'and 'TB2 Ag minus Nil Result' is an Interferon- gamma level <0.35 IU/mL. TB1 AG MINUS NIL NEG 0.01 IU/mL 11/28/19 3:25 PM EDT [facility]PATH [address] TB2 AG MINUS NIL NEG 0.01 IU/mL 11/28/19 3:25 PM EDT [facility] MED/PATH [address] MITOGEN MINUS NIL 9.95 IU/mL 025 3:25 PM EDT [facility] MED/PATH [place] [address] NIL RESULT 0.05 IU/mL 11/27/2024 3:25 PM EDT [facility] MED/PATH [address] Blood 11/25/2024 3:27 PM EDT 11/25/2024 3:34 PM EDT Yunier Lama MD LAB BLOOD ORDERABLES Final Re sult [facility] [address] * T4, free (11/25/2024 3:27 PM EDT) T4 (Thyroxine), Free 1.0 0.9 - 1.7 ng/dL 11/25/2024 7:38 PM EDT [facility] Blood 11/25/2024 3:27 PM EDT 11/25/2024 3:34 PM EDT Yunier Lama MD LAB BLOOD ORDERABLES Final Re sult [facility] * Ferritin (11/25/2024 3:27 PM EDT) Ferritin 17 13 - 150 ug/L 11/25/2024 7:38 PM EDT [facility] Blood 11/25/2024 3:27 PM EDT 11/25/2024 3:34 PM EDT Yunier Lama MD LAB BLOOD ORDERABLES Final Re sult [facility] * Chlamydia and Gonorrhoea, Amplified (08/17/2024 3:16 PM EDT) Chlamydia trachomatis RNA, TMA Not Detected Not Detected 08/18/2024 1:07 PM EDT [facility] Neisseria gonorrhoeae, CAMILA Not Detected Not Detected 08/18/2024 1:07 PM EDT [facility] Specimen Type swab 08/18/2024 1:07 PM EDT [facility] Swab (Vagina) 08/17/2024 3:1 6 PM EDT 08/17/2024 4:10 PM EDT Yunier Lama MD LAB MICROBIOLOGY - GENERAL OR DERABLES Final Result Performing Organization Address City/[facility]/ZIP Co de Phone Number [facility] from Last 3 Months or Most Recently Relevant to Health Maintenance Insurance [facility] [employer]lorogen [facility] Address[facility] [address] [place] [address] [facility] [employer]lorogen [employer] [facility] Care Teams Application Security Consultant Relationship Specialty Start Date End Date Yunier Lama MD [address] [place] [id number] PCP - General 06/12/16
--- OUTSIDE RECORDS SUMMARY | 2025-01-25 18:34 | XMS_ITS | Encounter Summary ---
Author Organization [facility] Address [address] [place] [address] Phone Care Team Providers Care Anatomy And Physiology Instructor Name Role Phone Yunier Lama MD Primary Care Provider [phone] Encounter Details Date Type Department Care Team (Late st Contact Info) Description 11/26/2024 Results Follow-Up [facility] - [address], [address] [place] [address] Yunier Lama MD [address] [place] [address] Social History Tobacco Use Types Packs/Day Years [...] Description 02/08/2025 1:40 PM EDT Office Visit [facility] - [address], [address] [place] [address] Yunier Lama MD [address] [place] [address] documented as of this encounter Visit Diagnoses Not on filedocumented in this encounter Care Teams Anatomy And Physiology Instructor Relationship Specialty Start Date End Date Yunier Lama MD [address] [place] [id number] PCP - General 06/12/16 documented as of this encounter
--- OUTSIDE RECORDS SUMMARY | 2025-01-25 18:34 | XMS_ITS | Encounter Summary ---
Author Organization [facility] Address [address] [place] [address] Phone Care Team Providers Care Ribbon Sweatband Operator Name Role Phone Yunier Lama MD Primary Care Provider [phone] Reason for Visit * Reason Onset Date Comments Med Refill 03/15/2023 Encounter Details Date Type Department Care Team (Late st Contact Info) Description 03/15/2023 Refill [facility] - [place] [address] [place] [address] Yuneir Lama MD [address] [place] [address] Reactive depression Social History Tobacco Use Types [...] Description 02/08/2025 1:40 PM EDT Office Visit [facility] - [address], [address] [place] [address] Yunier Laam MD [address] [place] [address] documented as of this encounter Visit Diagnoses Diagnosis Reactive depression documented in this encounter Care Teams Ribbon Sweatband Operator Relationship Specialty Start Date End Date Yunier Lama MD [address] [place] [id number] PCP - General 06/12/16 documented as of this encounter
== END 2025-01-25 18:18 | disposition home or self-care (01) ==
PROVIDERS: Physician Assistant; Emergency Provider Student in an Organized Health Care Education/Training Program; PCP Pediatrics
DX: R07.89 Other chest pain (principal); Z03.818 Encounter for observation for suspected exposure to other biological agents ruled out
CPT/HCPCS: 36415; 71045; 80053; 81003; 84484; 85025; 85379; 85610; 85730; 86308; 87502; 87635; 87651; 93005; 99284

== ENCOUNTER → 2025-01-25 14:55 | Outpatient (BNV) | payer OTHER, SELFPAY | PROVIDERS: Emergency Provider Student in an Organized Health Care Education/Training Program; PCP Pediatrics; Visit Provider Internal Medicine Cardiovascular Disease | DX: R07.9 Chest pain, unspecified (principal) | CPT/HCPCS: 93010 ==

== ENCOUNTER → 2025-01-25 15:42 | Outpatient (BNV) | payer MEDICAID, SELFPAY | PROVIDERS: PCP Pediatrics; Visit Provider Radiology Diagnostic Radiology | DX: R07.89 Other chest pain (principal) | CPT/HCPCS: 71045 ==